=== PATIENT | male | born 1935 | race Caucasian/White ===

== ENCOUNTER → 2020-03-26 | Outpatient (CLI) | payer MEDICARE | LOC: LABNPT 16:05 | PROVIDERS: ATTEND Podiatrist Foot & Ankle Surgery | DX: Z01.89 Encounter for other specified special examinations (principal) | CPT/HCPCS: 87101 ==

== ENCOUNTER 2020-04-01 14:16 | Emergency (ER) | payer MEDICARE, OTHER ==
[~2020-04-01] VITALS: Ht 172.7 cm; Wt 106.6 kg
--- OUTSIDE RECORDS SUMMARY | 2020-04-01 14:23 | XMS REPORT | Continuity of Care Document ---
Author Organization Unknown Address Unknown Phone Unavailable Allergies There is no data. Medications There is no data. Problems Date Dx Coded Attending Type Code Diagnosis Diagnosed By 03/28/2020 DANE DPM, SHANI Q Ot Z01. 89 ENCOUNTER FOR OTHER SPECIFIED SPECIAL EX 03/28/2020 DANE DPM, SHANI Q Ot Z01. 89 ENCOUNTER FOR OTHER SPECIFIED SPECIAL EX 03/28/2020 DANE DPM, SHANI Q Ot Z01. 89 ENCOUNTER FOR OTHER SPECIFIED SPECIAL EX Procedures There is no data. Results There is no data. Encounters ACCT No. Visit Date/Time Discharge Status Pt. Type Provider Facility Loc./Unit Complaint [id number] 10/10/2019 12:30:00 10/10/2019 23:59: 59 CLS Outpatient [facility] [id number] 03/26/2020 16:05:00 020 23:59:59 CLS Outpatient DANE DPM, SHANI Q [facility]
[2020-04-01] MEDS ORDERED: oxyCODONE/APAP 5/325MG (PERCOCET 5) TABLET PO ONE (15:00)
--- NOTE | 2020-04-01 15:10 | ED General ---
General Chief Complaint: Cardiac/General Problems Stated Complaint: LIONEL FEET SWELLING History of Present Illness Date Seen by Provider: April 01, 2020 Time Seen by Provider: 15:04 Initial Comments Patient presenting to emergency department for evaluation of bilateral actually swelling that has been an ongoing issue since October of last year. He says he has been following with his primary care provider and getting testing and treatment, he has been on Neosporin ointment since October and he says it has not helped at all. He has had skin scrapings done which showed it was a fungus and he has been on an antifungal cream and has used to 2 tubes so far and he says it has not helped either. He had a biopsy done on his right inner foot and he said it was a wart. His primary care provider is running out of options and has referred him to a payroll machine operator but his appointment is not until April 23 and he says he has endured too much pain for to long and says he would like to better pain control. I told him I likely would not get a better diagnosis or treatment plan but I certainly could try and treat his pain and maybe cough with some different management strategies. He was agreeable with this. 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 He denies having any chest pain or shortness of breath. He is in no obvious distress with normal vital signs. Allergies and Home Medications Allergies Coded Allergies: No Known Drug Allergies (Unverified , 04/01/20) Patient Home Medication List Home Medication List Reviewed: Yes Review of Systems Review of Systems Constitutional: no symptoms reported EENTM: no symptoms reported Respiratory: no symptoms reported Cardiovascular: edema Gastrointestinal: no symptoms reported Musculoskeletal: no symptoms reported Skin: dryness, lesions, rash Psychiatric/Neurological: No Symptoms Reported All Other Systems Reviewed Negative Unless Noted: Yes Past Wsstkjp-Zdjtky-Wircaa Hx Patient Social History Recent Foreign Travel: No Contact w/Someone Who Travel: No Physical Exam Vital Signs Capillary Refill : Height, Weight, BMI Height: '" Weight: lbs. oz. kg; BMI Method: General Appearance: No Apparent Distress, WD/WN HEENT: PERRL/EOMI Neck: Supple Respiratory: No Respiratory Distress Cardiovascular: Regular Rate, Rhythm Extremity: Normal Capillary Refill Neurologic/Psychiatric: Alert, Oriented x3 Skin: Other (bilateral lower extremities have erythema circumferentially from the feet to the proximal tib-fib region. There is no warmth or significant tenderness to palpation. Some of the erythema is splotchy especially on the top of the right foot. The labs he site appears clean and dry and intact with no signs of fluid collection or cellulitis. 2+ edema BL LE) Progress/Results/Core Measures Suspected Sepsis SIRS Temperature: Pulse: Respiratory Rate: Blood Pressure / Mean: Results/Orders My Orders Orders - TERRELL NICOLE DO Oxycodone/Apap 5/325mg Tablet (Percocet (04/01/20 15:00) Vital Signs/I&O Capillary Refill : Progress Note : Progress Note I gave him Percocet here. He does not have compression stockings at this time so told him to acquire compression stockings and use this and he also needs to elevate his legs quite frequently at least 15 minutes every 2 hours. Patient was told that he should be using moisturizers frequently and I recommended Vaseline. I told him as far as antibiotics or oral antifungals I would hold off doing that at this time as I would rather him see his primary care provider or a payroll machine operator as they're more familiar with his wounds and couldn't further guide management that point. Told he has fevers chills or other systemic symp toms he should come back to emergency department. Patient aware and agreeable with plan and verbalized understanding of the above instructions. Departure Impression Primary Impression: Fungal dermatitis Additional Impression: Stasis dermatitis Disposition: 01 HOME, SELF-CARE Condition: Stable Departure-Patient Inst. Referrals: NO,LOCAL PHYSICIAN (PCP/Family) Primary Care Physician Patient Instructions: Fungal Skin Rash (DC) Add. Discharge Instructions: Use Vaseline gauze 4 times daily. Use compression stalkings. Elevated legs for at least 15 minutes every 2 hours, more if possible. Try and get in with a payroll machine operator sooner. All discharge instructions reviewed with patient and/or family. Voiced understanding. Scripts Oxycodone HCl/Acetaminophen (Percocet 5-325 mg Tablet) 1 Each Tablet 1 TAB PO Q4H for PAIN-MODERATE MDD 6 TABS for 7 Days, #14 TAB Prov: TERRELL NICOLE DO 04/01/20 TERRELL NICOLE DO April 01, 2020 15:09
[2020-04-01] MEDS ORDERED: OXYC1TAB87 PO (15:16)
[2020-04-01 15:25] VITALS: BP 148/77
== END 2020-04-01 15:20 | disposition home or self-care (01) ==
LOC: EDUNIT# 14:16 → ER FS 14:19
DX: B36.9 Superficial mycosis, unspecified (principal); I87.2 Venous insufficiency (chronic) (peripheral)
CPT/HCPCS: 99283

== ENCOUNTER 2020-06-15 09:21 | Emergency (ER) | payer MEDICARE, OTHER ==
[~2020-06-15] VITALS: Ht 172.7 cm; Wt 105.2 kg
[~2020-06-15 09:21] MED LIST: OXYC1TAB87 PO
--- OUTSIDE RECORDS SUMMARY | 2020-06-15 09:31 | XMS REPORT ---
Author Author Angel Brown Organization [facility] Address [address] [place] [address] Care Team Providers Care Counter Pocket Sewer Name Role Phone Julieta Brown Unavailable PROBLEMS Type Condition ICD9-CM Code [id number] Code Onset Dates Condition S tatus SNOMED Code Problem Venous stasis dermatitis of both lower extremities I87.2 Active 28386273 Problem Stasis dermatitis of both legs I87.2 Active 55024804 ALLERGIES Substance Reaction Event Type Date Status Morphine Sulfate Unknown Drug Allergy Apr, Active Dilaudid Unknown Drug Allergy Apr, Active statins Unknown Non Drug Allergy Apr, Active ENCOUNTERS Encounter Location Date Diagnosis [facility] [address] [facility] [address] [place] [address] Apr, Callus of foot L84 and Stasi s dermatitis of both legs I87.2 [facility] [address] [facility] [address] [facility] [address] [place] [phone] 15 Apr, 2020 [facility] [address] [facility] in [facility] [address] [place] [address] 04 Apr, 2020 Stasis dermatitis of both le gs I87.2 and Tinea pedis B35.3 IMMUNIZATIONS No Known Immunizations SOCIAL HISTORY Never Assessed REASON FOR VISIT 2 week f/u temp : 98.1 PLAN OF CARE Activity Details Follow Up prn Reason: VITAL SIGNS Temperature 98.1 degrees Fahrenheit 2020-04-30 Heart Rate 67 /min 2020-04-30 Height 68.5 in 2020-04-30 Weight 236 lbs 2020-04-30 BMI 35.36 kg/m2 2020-04-30 Blood pressure systolic 174 mm Hg 2020-04-30 Blood pressure diastolic 98 mm Hg 2020-04-30 MEDICATIONS Medication Instructions Dosage Frequency Start Date End Date Duration S tatus Metoprolol Tartrate Acti ve Zantac Active Altace Active Hydrocodone-Acetaminophen Active Vitamin C Active Multivitamin Active Minocycline HCl 100 MG Orally bid 1 capsule 12h 04 Apr, 2020 10 day(s) Active Econazole Nitrate Active Fish Oil Active Livalo Active Econazole Nitrate 1 % Externally twice a day apply to feet 12h 0 4 Apr, 2020 30 days Active Aspirin Active Diflucan 150 MG Orally once a week x 6 weeks 1 tablet 2019 42 day(s) Active Levothyroxine Sodium Act jcarlos Lac-Hydrin Twelve 12 % Externally once a day 1 application to legs and feet 24h 22 Apr, 2020 30 days Active Triamcinolone Acetonide 0.1 % Externally Twice a day apply to legs and feet 12h Apr, 30 days Active Tamsulosin HCl Active Triple Antibiotic Active Trazodone HCl Active Azelastine HCl Active Norvasc Active RESULTS No Results PROCEDURES Procedure Date Ordered Result Body Site DOC MEDS VERIFIED W/PT OR RE April 30, 2020 INSTRUCTIONS MEDICATIONS ADMINISTERED No Known Medications MEDICAL (GENERAL) HISTORY Type Description Date Medical History hyperlipidemia Medical History Hypothyroidism Surgical History Shoulder Surgery Surgical History left hip replacement Surgical History right hip replacement Surgical History brain surgery
--- OUTSIDE RECORDS SUMMARY | 2020-06-15 09:31 | XMS REPORT ---
Author Author Angel Brown Organization [facility] Address [address] [address] [place] [address] Care Team Providers Care Community Reinvestment Act Officer Name Role Phone Julieta Brown Unavailable PROBLEMS Type Condition ICD9-CM Code [id number] Code Onset Dates Condition S tatus SNOMED Code Problem Venous stasis dermatitis of both lower extremities I87.2 Active 52813960 Problem Stasis dermatitis of both legs I87.2 Active 92640318 ALLERGIES No Information ENCOUNTERS Encounter Location Date Diagnosis [facility] [address] [facility] [address] [facility] [address] [place] [address] Apr, [facility] [address] [facility] [address] [facility] [address] [place] [address] 15 Apr, 2020 [facility] [id number] [place] [address] in [facility] [address] [place] [address] 04 Apr, 2020 Stasis dermatitis of both le gs I87.2 and Tinea pedis B35.3 IMMUNIZATIONS No Known Immunizations SOCIAL HISTORY Never Assessed REASON FOR VISIT RX PLAN OF CARE VITAL SIGNS MEDICATIONS Unknown Medications RESULTS No Results PROCEDURES No Known procedures INSTRUCTIONS MEDICATIONS ADMINISTERED No Known Medications MEDICAL (GENERAL) HISTORY Type Description Date Medical History hyperlipidemia Medical History Hypothyroidism Surgical History Shoulder Surgery Surgical History left hip replacement Surgical History right hip replacement Surgical History brain surgery
--- OUTSIDE RECORDS SUMMARY | 2020-06-15 09:31 | XMS REPORT ---
Author Author Angel Brown Organization [facility] Address [address] [place] [address] Care Team Providers Care Casino Enforcement Agent Name Role Phone Julieta Brown Unavailable PROBLEMS Type Condition ICD9-CM Code [id number] Code Onset Dates Condition S tatus SNOMED Code Problem Venous stasis dermatitis of both lower extremities I87.2 Active 99065806 Problem Stasis dermatitis of both legs I87.2 Active 31064048 ALLERGIES Substance Reaction Event Type Date Status Morphine Sulfate Unknown Drug Allergy Apr, Active Dilaudid Unknown Drug Allergy Apr, Active statins Unknown Non Drug Allergy Apr, Active ENCOUNTERS Encounter Location Date Diagnosis [facility] [address] in [facility] [address] [place] [address] Apr, [facility] [address] in [facility] [address] [place] [address] Apr, Stasis dermatitis of both le gs I87.2 and Tinea pedis B35.3 IMMUNIZATIONS No Known Immunizations SOCIAL HISTORY Never Assessed REASON FOR VISIT ERP TECHNICAL LEAD-foot fungus PLAN OF CARE Activity Details Follow Up 2 Weeks Reason: VITAL SIGNS Heart Rate 69 /min 2020-04-12 Height 68.5 in 2020-04-12 Weight 236 lbs 2020-04-12 BMI 35.36 kg/m2 2020-04-12 Blood pressure systolic 142 mm Hg 2020-04-12 Blood pressure diastolic 59 mm Hg 2020-04-12 MEDICATIONS Medication Instructions Dosage Frequency Start Date End Date Duration S tatus Econazole Nitrate Active Triple Antibiotic Active Multivitamin Active Zantac Active Aspirin Active Fish Oil Active Trazodone HCl Active Diflucan 150 MG Orally once a week x 6 weeks 1 tablet 2019 42 day(s) Active Livalo Active Hydrocodone-Acetaminophen Active Metoprolol Tartrate Acti ve Minocycline HCl 100 MG Orally bid 1 capsule 12h Apr, 10 day(s) Active Triamcinolone Acetonide 0.1 % Externally Twice a day apply to legs and feet 12h Apr, 30 days Active Azelastine HCl Active Altace Active Vitamin C Active Econazole Nitrate 1 % Externally twice a day apply to feet 12h 0 Apr, 30 days Active Norvasc Active Levothyroxine Sodium Act jcarlos Tamsulosin HCl Active RESULTS No Results PROCEDURES Procedure Date Ordered Result Body Site DOC MEDS VERIFIED W/PT OR RE April 12, 2020 INSTRUCTIONS MEDICATIONS ADMINISTERED No Known Medications MEDICAL (GENERAL) HISTORY Type Description Date Medical History hyperlipidemia Medical History Hypothyroidism Surgical History Shoulder Surgery Surgical History left hip replacement Surgical History right hip replacement Surgical History brain surgery
--- OUTSIDE RECORDS SUMMARY | 2020-06-15 09:31 | XMS REPORT | Continuity of Care Document ---
Author Organization Unknown Address Unknown Phone Unavailable Allergies Active Description Code Type Severity Reaction Onset Reported/Identified Relationship to Patient Clinical Status Yes No Known Drug Allergies [id number] Drug Allergy Unknown N/A 04/01/2020 Medications There is no data. Problems Date Dx Coded Attending Type Code Diagnosis Diagnosed By 03/28/2020 DANE DPM, SHANI Q Ot Z01. 89 ENCOUNTER FOR OTHER SPECIFIED SPECIAL EX 03/28/2020 DANE DPM, SHANI Q Ot Z01. 89 ENCOUNTER FOR OTHER SPECIFIED SPECIAL EX 03/28/2020 DANE DPM, SHANI Q Ot Z01. 89 ENCOUNTER FOR OTHER SPECIFIED SPECIAL EX 04/01/2020 TERRELL NICOLE DO Ot B36 .9 SUPERFICIAL MYCOSIS, UNSPECIFIED 04/01/2020 REEDS DOTERRELL Ot I87 .2 VENOUS INSUFFICIENCY (CHRONIC) (PERIPHER 04/01/2020 DANE DPM, SHANI Q Ot Z01. 89 ENCOUNTER FOR OTHER SPECIFIED SPECIAL EX 04/02/2020 DANE DPM, SHANI Q Ot Z01. 89 ENCOUNTER FOR OTHER SPECIFIED SPECIAL EX 04/04/2020 TERRELL NICOLE DO Ot B36 .9 SUPERFICIAL MYCOSIS, UNSPECIFIED 04/04/2020 TERRELL NICOLE DO Ot I87 .2 VENOUS INSUFFICIENCY (CHRONIC) (PERIPHER 04/07/2020 TERRELL NICOLE DO Ot B36 .9 SUPERFICIAL MYCOSIS, UNSPECIFIED 04/07/2020 BONNIETERRELL JAY DO Ot I87 .2 VENOUS INSUFFICIENCY (CHRONIC) (PERIPHER 04/20/2020 DANE DPM, SHANI Q Ot Z01. 89 ENCOUNTER FOR OTHER SPECIFIED SPECIAL EX 04/20/2020 DANE DPM, SHANI Q Ot Z01. 89 ENCOUNTER FOR OTHER SPECIFIED SPECIAL EX 05/14/2020 DANE DPM, SHANI Q Ot Z01. 89 ENCOUNTER FOR OTHER SPECIFIED SPECIAL EX 05/14/2020 DANE DPM, SHANI Q Ot Z01. 89 ENCOUNTER FOR OTHER SPECIFIED SPECIAL EX Procedures There is no data. Results Test Result Range Fungus culture - 03/26/20 11:00 QUANTITY OF GROWTH Isolated NRG FTX;REPORTABLE RAPID GROWER NRG Fungus culture [id number] NRG IDENTIFICATION TO FOLLOW FURTHER IDENTIFICATION TO FOLLOW NRG Encounters ACCT No. Visit Date/Time Discharge Status Pt. Type Provider Facility Loc./Unit Complaint [id number] 10/10/2019 12:30:00 10/10/2019 23:59: 59 CLS [facility] [id number] 04/01/2020 14:19:00 020 15:20:00 DIS Emergency TERRELL NICOLE DO [facility] ER FS LIONEL FEET SWELLING [id number] 03/26/2020 16:05:00 23:59:59 CLS Outpatient SHANI VELA DPM [facility] LABNPT
--- NOTE | 2020-06-15 09:37 | ED Chest Pain ---
General Chief Complaint: Chest Pain Stated Complaint: CHEST PAIN Source: patient, EMS Exam Limitations: no limitations History of Present Illness Date Seen by Provider: Jun 15, 2020 Time Seen by Provider: 09:28 Initial Comments 85-year-old male presents with onset of chest pain earlier this morning. Pain began after increasing back pain which has been persistent for the past week. Pain is located between his shoulder blades and this morning radiated up his ba ck and into her shoulder, then into his chest. Pain is significant worse with movement and positionally exacerbated or relieved. Denies any associated recent illness, fever, chills, cough, shortness of air, abdominal pain or nausea and vomiting. Patient states that he believes back pain began after he started using a walker 3 weeks ago for getting around because his feet were hurting so bad. Patient states he has had a problem with the bottom of his feet, has not seen his doctor, but the condition is getting worse and is now painful to bear weight. Allergies and Home Medications Allergies Coded Allergies: Dqkjrcf-Bpj-Lsq Reductase Inhibitor (Verified Allergy, Unknown, 06/15/20) morphine (Verified Allergy, Unknown, 06/15/20) phenytoin (Verified Allergy, Unknown, 06/15/20) Home Medications Cyclobenzaprine HCl 10 Mg Tablet, 10 MG PO Q8H PRN for SPASMS Prescribed by: ARCHIE HEIN on 06/15/20 1157 Ibuprofen 800 Mg Tablet, 800 MG PO Q8H PRN for PAIN Prescribed by: ARCHIE BARRYSTCHAYO on 06/15/20 1157 Oxycodone HCl/Acetaminophen 1 Each Tablet, 1 TAB PO Q4H Prescribed by: TERRELL NICOLE on 04/01/20 1516 Patient Home Medication List Home Medication List Reviewed: Yes Review of Systems Review of Systems Constitutional: see HPI; No fever, No malaise, No weakness EENTM: No Symptoms Reported Respiratory: Denies Cough, Denies Shortness of Air, Denies Stridor, Denies Wheezing Cardiovascular: Chest Pain; Denies Edema, Denies Lightheadedness, Denies Palpit ations, Denies Syncope Gastrointestinal: Denies Abdominal Pain, Denies Diarrhea, Denies Nausea, Denies Poor Appetite, Denies Vomiting Genitourinary: Denies Drainage, Denies Frequency, Denies Flank Pain, Denies He maturia Musculoskeletal: back pain; No joint pain, No joint swelling, No neck pain Skin: see HPI; No change in color, No lesions, No lumps; other (chronic skin changes of sole of feet) Past Ydxqepn-Rgyjjs-Vmemvu Hx Past Med/Social Hx: Reviewed Nursing Past Med/Soc Hx Patient Social History Type Used: Cigarettes Former Smoker, Quit: Nov 09, 1989 2nd Hand Smoke Exposure: No Immunizations Up To Date Tetanus Booster (TDap): Unknown Past Medical History Appendectomy, Coronary Stent, Orthopedic Respiratory: No Cardiac: Yes High Cholesterol, Hypertension Neurological: Yes (Contusion to brain) Genitourinary: No Gastroesophageal Reflux Musculoskeletal: No Endocrine: Yes (Borderline Diabetic) HEENT: No Cancer: No Psychosocial: No Integumentary: Yes (Dermatitis) Recent Skin Changes Blood Disorders: No Physical Exam Vital Signs Vital Signs - First Documented 06/15/20 09:24 Temp 36.4 Pulse 80 Resp 21 B/P (MAP) 159/72 (101) Pulse Ox 96 O2 Delivery Room Air Capillary Refill : Height, Weight, BMI Height: '" Weight: lbs. oz. kg; 35.00 BMI Method: General Appearance: No Apparent Distress, WD/WN HEENT: PERRL/EOMI, Normal ENT Inspection Neck: Full Range of Motion, Non Tender, Supple Respiratory: Chest Non Tender, Lungs Clear, Normal Breath Sounds Cardiovascular: Regular Rate, Rhythm, No Edema, No JVD, No Murmur, Normal Peripheral Pulses Gastrointestinal: Non Tender, Soft; No Distended, No Guarding, No Hepatomegaly Extremity: Normal Capillary Refill, Non Tender, No Calf Tenderness; No Calf Tenderness, No Pedal Edema, No Swelling Skin: Warm/Dry; No Erythema; Other (chronic skin changes of soles of feet. large cracks and tenderness. no sign of abscess or cellulitis.) Progress/Results/Core Measures Results/Orders Lab Results Laboratory Tests Test 06/15/20 09:40 06/15/20 11:45 Range/Units White Blood Count 11.4 H 4.3-11.0 10^3/uL Red Blood Count 4.55 4.35-5.85 10^6/uL Hemoglobin 13.0 L 13.3-17.7 G/DL Hematocrit 40 40-54 % Mean Corpuscular Volume 88 80-99 FL Mean Corpuscular Hemoglobin 29 25-34 PG Mean Corpuscular Hemoglobin Concent 33 32-36 G/DL Red Cell Distribution Width 13.9 10.0-14.5 % Platelet Count 243 130-400 10^3/uL Mean Platelet Volume 10.0 7.4-10.4 FL Neutrophils (%) (Auto) 69 42-75 % Lymphocytes (%) (Auto) 15 12-44 % Monocytes (%) (Auto) 14 H 0-12 % Eosinophils (%) (Auto) 2 0-10 % Basophils (%) (Auto) 0 0-10 % Neutrophils # (Auto) 7.9 H 1.8-7.8 X 10^3 Lymphocytes # (Auto) 1.7 1.0-4.0 X 10^3 Monocytes # (Auto) 1.6 H 0.0-1.0 X 10^3 Eosinophils # (Auto) 0.2 0.0-0.3 10^3/uL Basophils # (Auto) 0.1 0.0-0.1 10^3/uL Sodium Level 133 L 135-145 MMOL/L Potassium Level 4.7 3.6-5.0 MMOL/L Chloride Level 96 L 98-107 MMOL/L Carbon Dioxide Level 28 21-32 MMOL/L Anion Gap 9 5-14 MMOL/L Blood Urea Nitrogen 17 7-18 MG/DL Creatinine 0.84 0.60-1.30 MG/DL Estimat Glomerular Filtration Rate > 60 BUN/Creatinine Ratio 20 Glucose Level 190 H 70-105 MG/DL Calcium Level 10.1 8.5-10.1 MG/DL Corrected Calcium 10.3 H 8.5-10.1 MG/DL Total Bilirubin 0.7 0.1-1.0 MG/DL Aspartate Amino Transf (AST/SGOT) 15 5-34 U/L Alanine Aminotransferase (ALT/SGPT) 12 0-55 U/L Alkaline Phosphatase 55 40-136 U/L Troponin I < 0.30 < 0.30 <0.30 NG/ML Total Protein 7.4 6.4-8.2 GM/DL Albumin 3.7 3.2-4.5 GM/DL My Orders Orders - ROVENSTARCHIE DOMINGO DO Ed Iv/Invasive Line Start (06/15/20 09:30) Chest 1 View Ap/Pa Only (06/15/20 09:30) Ekg Tracing (06/15/20 09:30) Cbc With Automated Diff (06/15/20 09:30) Comprehensive Metabolic Panel (06/15/20 09:30) Troponin I Fs (06/15/20 09:30) Aspirin Chewable Tablet (Baby Aspirin Ch (06/15/20 10:00) Fentanyl Injection (Sublimaze Injection (06/15/20 10:00) Troponin I Fs (06/15/20 11:45) Medications Given in ED Current Medications Medications Dose Ordered Sig/Fabiano Route Start Time Stop Time Status Last Admin Dose Admin Aspirin 324 mg ONCE ONCE PO 06/15/20 10:00 06/15/20 10:01 DC 06/15/20 10:14 324 MG Fentanyl Citrate 25 mcg Q1H PRN IVP 06/15/20 10:00 06/15/20 12:45 DC 06/15/20 10:14 25 MCG Vital Signs/I&O 06/15/20 06/15/20 06/15/20 09:24 09:38 12:23 Temp 36.4 Pulse 80 76 Resp 21 20 B/P (MAP) 159/72 (101) 141/68 Pulse Ox 96 95 O2 Delivery Room Air Room Air Room Air Progress Progress Note : Progress Note Uneventful ER stay, normal labs including to our delta troponin, normal EKG and chest x-ray. Patient primarily has upper back pain, and between his shoulder blades which is been exacerbated by walking with a walker over the past few weeks due to having foot pain. This was discussed rather extensively with the patient. 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 I did offer treatment, however he declined and said "I don't mean to be insulting, but I'd rather get treatment from my document management consultant for my foot". Discussed stretches and exercises that he can do for his upper back in the meantime since he prefers to use a walker for his foot pain. Patient agrees and understands and will follow up with PCP next week for reevaluation. 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 Lungs are clear. There are no effusions or pneumothoraces. IMPRESSION: Negative chest Dictated by: Dictated on workstation # [id number] Dict: 06/15/20948 Trans: 06/15/20948 TB [id number] Interpreted by: LUCIA MESSER MD Electronically signed by: LUCIA MESSER MD 06/15/20948 Departure Impression Primary Impression: Chest pain Qualified Codes: R07.9 - Chest pain, unspecified Additional Impression: Thoracic myofascial strain Qualified Codes: S29.019A - Strain of muscle and tendon of unspecified wall of thorax, initial encounter Disposition: HOME, SELF-CARE Condition: Improved Departure-Patient Inst. Referrals: NO,LOCAL PHYSICIAN (PCP/Family) Primary Care Physician Patient Instructions: Chest Pain (DC), Muscle Strain (DC) Add. Discharge Instructions: See your Primary Doctor in 1 week for re-evaluation of your back pain. Go to the nearest ER if you have return of your chest pain. All discharge instructions reviewed with patient and/or family. Voiced understanding. Scripts Ibuprofen (Ibuprofen) 800 Mg Tablet 800 MG PO Q8H PRN for PAIN, #30 TAB 0 Refills Prov: ARCHIE HEIN DO 06/15/20 Cyclobenzaprine HCl (Cyclobenzaprine HCl) 10 Mg Tablet 10 MG PO Q8H PRN for SPASMS, #15 TAB 0 Refills Prov: ARCHIE HEIN DO 06/15/20 ARCHIE HEIN DO Jun 15, 2020 09:37
--- NOTE | 2020-06-15 09:51 | Diagnostic Imaging Report ---
Indication: Chest pain Portable chest 9:38 AM Heart size and pulmonary vascularity are normal. Lungs are clear. There are no effusions or pneumothoraces. IMPRESSION: Negative chest Dictated by: Dictated on workstation # [id number]
[2020-06-15 09:54] LABS: HEMATOCRIT 40 % (40-54); MEAN CORPUSCULAR HEMOGLOBIN 29 PG (25-34); MEAN CORPUSCULAR HGB CONC 33 G/DL (32-36); MEAN CORPUSCULAR VOLUME 88 FL (80-99); RED CELL DISTRIBUTION WIDTH 13.9 % (10.0-14.5); WHITE BLOOD COUNT 11.4 10^3/uL (4.3-11.0)
[2020-06-15 09:55] LABS: BASOPHILS # (AUTO) 0.1 10^3/uL (0.0-0.1); BASOPHILS % (AUTO) 0 % (0-10); EOSINOPHILS # (AUTO) 0.2 10^3/uL (0.0-0.3); EOSINOPHILS % (AUTO) 2 % (0-10); LYMPHOCYTES # (AUTO) 1.7 X 10^3 (1.0-4.0); LYMPHOCYTES % (AUTO) 15 % (12-44); MONOCYTES # (AUTO) 1.6 X 10^3 (0.0-1.0); MONOCYTES % (AUTO) 14 % (0-12); NEUTROPHILS # (AUTO) 7.9 X 10^3 (1.8-7.8); NEUTROPHILS % (AUTO) 69 % (42-75); PLATELET COUNT 243 10^3/uL (130-400)
[2020-06-15] MEDS ORDERED: ASPIRIN 81 MG CHEW (CHILDREN'S ASA) PO ONE (10:00)
[2020-06-15] MEDS ORDERED: fentaNYL INJECTION 100 MCG/2 ML AMP IVP PRN (10:00)
[2020-06-15 10:09] LABS: BUN/CREATININE RATIO 20; CARBON DIOXIDE 28 MMOL/L (21-32); CHLORIDE 96 MMOL/L (98-107); CREATININE SERUM 0.84 MG/DL (0.60-1.30); GFR ESTIMATED > 60; POTASSIUM 4.7 MMOL/L (3.6-5.0); SODIUM 133 MMOL/L (135-145)
[2020-06-15 10:10] LABS: ALANINE AMINOTRANSFERASE 12 U/L (0-55); ALBUMIN 3.7 GM/DL (3.2-4.5); ALKALINE PHOSPHATASE 55 U/L (40-136); BILIRUBIN,TOTAL 0.7 MG/DL (0.1-1.0); CALCIUM 10.1 MG/DL (8.5-10.1); GLUCOSE 190 MG/DL (70-105); TOTAL PROTEIN 7.4 GM/DL (6.4-8.2)
[2020-06-15] MEDS ORDERED: IBUP-1780 PO (11:57)
[2020-06-15] MEDS ORDERED: CYCL10TA9 PO (11:57)
[2020-06-15 12:23] VITALS: BP 141/68
== END 2020-06-15 12:23 | disposition home or self-care (01) ==
LOC: EDUNIT# 09:21 → ER FS 09:22
DX: S29.012A Strain of muscle and tendon of back wall of thorax, initial encounter (principal); R07.9 Chest pain, unspecified; Z88.8 Allergy status to other drugs, medicaments and biological substances; Z88.5 Allergy status to narcotic agent; Z87.891 Personal history of nicotine dependence; Z95.5 Presence of coronary angioplasty implant and graft; X58.XXXA Exposure to other specified factors, initial encounter
CPT/HCPCS: 36415; 71045; 80053; 84484; 85025; 93005

== ENCOUNTER 2020-09-14 12:32 | Emergency (ER) | payer MEDICARE, OTHER ==
[~2020-09-14 12:32] MED LIST changes: +CYCL10TA9 PO; +IBUP-1780 PO
[2020-09-14] MEDS ORDERED: hydrALAZINE (APESOLINE) 20 MG/ML VIAL IV ONE (12:45)
--- NOTE | 2020-09-14 12:45 | ED General ---
General Chief Complaint: Neuro-Stroke Like Symptoms Stated Complaint: RT FACIAL NUMBNESS; RT HAND NUMBNESS; Source of Information: Patient, RN/MD, RN Notes Reviewed Exam Limitations: No Limitations History of Present Illness Date Seen by Provider: Sep 14, 2020 Time Seen by Provider: 12:35 Initial Comments This patient is an 85-year-old male that presents to the emergency department concerning the knee might be having a mini stroke. Patient states he describes n umbness to the right side of his face and right thumb. On the posterior portion. Patient denies any other symptoms. On exam patient's appears to be normal. NIH scale 0. Patient has 2 point discrimination no pain receptors and does not appear to have any numbness with examination. Patient states he feels like he does have a shot of Novocain in his teeth. Patient states she's had a mini stroke in the past. We'll do medical evaluation treatment is needed. Patient ambulates in the emergency department without difficulty patient speaks in clear sentences. We'll do medical evaluation treatment is needed. Timing/Duration: 1-3 Hours Associated Systoms: Denies Symptoms Allergies and Home Medications Allergies Coded Allergies: Bwpneuz-Afl-Wee Reductase Inhibitor (Verified Allergy, Unknown, 06/15/20) morphine (Verified Allergy, Unknown, 06/15/20) phenytoin (Verified Allergy, Unknown, 06/15/20) Home Medications Cyclobenzaprine HCl 10 Mg Tablet, 10 MG PO Q8H PRN for SPASMS Prescribed by: ARCHIE BARRYSTCHAYO on 06/15/20 1157 Ibuprofen 800 Mg Tablet, 800 MG PO Q8H PRN for PAIN Prescribed by: ARCHIE BARRYSTINE on 06/15/20 1157 Oxycodone HCl/Acetaminophen 1 Each Tablet, 1 TAB PO Q4H Prescribed by: TERRELL NICOLE on 04/01/20 1516 Patient Home Medication List Home Medication List Reviewed: Yes Review of Systems Review of Systems Constitutional: No no symptoms reported; see HPI; No chills, No diaphoresis, No dizziness, No fever, No malaise, No weakness, No weight gain, No weight loss, No other EENTM: No see HPI, No no symptoms reported, No ear discharge, No hearing loss, No ear pain, No blurred vision, No double vision, No eye pain, No tearing, No vision loss, No dental problems, No hoarseness, No mouth pain, No mouth swelling, No epistaxis, No nose congestion, No nose pain, No throat pain, No throat swelling, No other Respiratory: No no symptoms reported, No see HPI, No cough, No dyspnea on exertion, No hemoptysis, No orthopnea, No phlegm, No short of breath, No stridor, No wheezing, No other Cardiovascular: No no symptoms reported, No see HPI, No chest pain, No edema, No Hx of Intervention, No palpitations, No syncope, No vascular heart diseas, No other Gastrointestinal: No RUQ, No LUQ, No RLQ, No LLQ, No no symptoms reported, No see HPI, No abdominal pain, No constipation, No diarrhea, No dysphagia, No hematemesis, No heartburn, No jaundice, No loss of appetite, No melena, No nausea, No vomiting, No other Genitourinary: No no symptoms reported, No see HPI, No decreased output, No discharge, No dysuria, No frequency, No hematuria, No hesitancy, No incontinence, No nocturia, No pain, No other Musculoskeletal: No no symptoms reported, No see HPI, No back pain, No gout, No joint pain, No joint swelling, No muscle pain, No muscle stiffness, No muscle cramps, No muscle twitching, No muscle weakness, No neck pain, No other Skin: No no symptoms reported, No see HPI, No change in color, No change in hair/nails, No dryness, No hx of skin cancer, No lesions, No lumps, No pruritus, No rash, No other All Other Systems Reviewed Negative Unless Noted: Yes Past Kdvliic-Mcscfi-Bknivs Hx Patient Social History Type Used: Cigarettes Former Smoker, Quit: Nov 09, 1989 2nd Hand Smoke Exposure: No Recent Foreign Travel: No Contact w/Someone Who Travel: No Recent Hopitalizations: No Immunizations Up To Date Tetanus Booster (TDap): Unknown Seasonal Allergies Seasonal Allergies: No Past Medical History Surgeries: Yes (Bilat Total Hip, R TKR, Rt foot Biopsy, Thyroid lobectomy) Appendectomy, Coronary Stent, Orthopedic Respiratory: No Cardiac: Yes Coronary Artery Disease, High Cholesterol, Hypertension Neurological: Yes (Contusion to brain) Genitourinary: No Gastrointestinal: Yes Gastroesophageal Reflux Musculoskeletal: No Endocrine: Yes (Borderline Diabetic) HEENT: No Cancer: No Psychosocial: No Integumentary: Yes (Dermatitis) Recent Skin Changes Blood Disorders: No Physical Exam Vital Signs Vital Signs - First Documented 09/14/20 12:33 Temp 36.9 Pulse 63 Resp 14 B/P (MAP) 164/72 (102) Pulse Ox 97 O2 Delivery Room Air Capillary Refill : Height, Weight, BMI Height: '" Weight: lbs. oz. kg; 35.00 BMI Method: General Appearance: No Apparent Distress, WD/WN HEENT: PERRL/EOMI, TMs Normal, Normal ENT Inspection, Pharynx Normal Respiratory: Chest Non Tender, Lungs Clear, Normal Breath Sounds, No Accessory Muscle Use, No Respiratory Distress Cardiovascular: Regular Rate, Rhythm, No Edema, No Gallop, No JVD, No Murmur, Normal Peripheral Pulses Gastrointestinal: Normal Bowel Sounds, No Organomegaly, No Pulsatile Mass, Non Tender, Soft Back: Normal Inspection, No CVA Tenderness, No Vertebral Tenderness Extremity: Normal Capillary Refill, Normal Inspection, Normal Range of Motion, Non Tender, No Calf Tenderness, No Pedal Edema Neurologic/Psychiatric: Alert, Oriented x3, No Motor/Sensory Deficits, Normal Mood/Affect, channel cementer outsole machine II-XII Norm as Tested Skin: Normal Color, Warm/Dry Lymphatic: No Adenopathy Progress/Results/Core Measures Suspected Sepsis SIRS Temperature: Pulse: Respiratory Rate: Laboratory Tests 09/14/20 13:10: White Blood Count 6.1 Blood Pressure / Mean: Laboratory Tests 09/14/20 13:10: Creatinine 0.87, INR Comment 1.0, Platelet Count 225, Total Bilirubin 0.4 Results/Orders Lab Results Laboratory Tests Test 09/14/20 13:10 09/14/20 14:15 Range/Units White Blood Count 6.1 4.3-11.0 10^3/uL Red Blood Count 4.35 4.35-5.85 10^6/uL Hemoglobin 12.7 L 13.3-17.7 G/DL Hematocrit 37 L 40-54 % Mean Corpuscular Volume 86 80-99 FL Mean Corpuscular Hemoglobin 29 25-34 PG Mean Corpuscular Hemoglobin Concent 34 32-36 G/DL Red Cell Distribution Width 13.2 10.0-14.5 % Platelet Count 225 130-400 10^3/uL Mean Platelet Volume 10.0 7.4-10.4 FL Immature Granulocyte % (Auto) 0 % Neutrophils (%) (Auto) 57 42-75 % Lymphocytes (%) (Auto) 25 12-44 % Monocytes (%) (Auto) 14 H 0-12 % Eosinophils (%) (Auto) 3 0-10 % Basophils (%) (Auto) 1 0-10 % Neutrophils # (Auto) 3.5 1.8-7.8 X 10^3 Lymphocytes # (Auto) 1.5 1.0-4.0 X 10^3 Monocytes # (Auto) 0.8 0.0-1.0 X 10^3 Eosinophils # (Auto) 0.2 0.0-0.3 10^3/uL Basophils # (Auto) 0.1 0.0-0.1 10^3/uL Immature Granulocyte # (Auto) 0.0 0.0-0.1 10^3/uL Prothrombin Time 13.6 12.2-14.7 SEC INR Comment 1.0 0.8-1.4 Sodium Level 138 135-145 MMOL/L Potassium Level 3.6 3.6-5.0 MMOL/L Chloride Level 104 98-107 MMOL/L Carbon Dioxide Level 25 21-32 MMOL/L Anion Gap 9 5-14 MMOL/L Blood Urea Nitrogen 14 7-18 MG/DL Creatinine 0.87 0.60-1.30 MG/DL Estimat Glomerular Filtration Rate > 60 BUN/Creatinine Ratio 16 Glucose Level 135 H 70-105 MG/DL Calcium Level 9.7 8.5-10.1 MG/DL Corrected Calcium 9.8 8.5-10.1 MG/DL Total Bilirubin 0.4 0.1-1.0 MG/DL Aspartate Amino Transf (AST/SGOT) 24 5-34 U/L Alanine Aminotransferase (ALT/SGPT) 18 0-55 U/L Alkaline Phosphatase 47 40-136 U/L Troponin I < 0.30 <0.30 NG/ML Pro-B-Type Natriuretic Peptide 256.6 H <75.0 PG/ML Total Protein 6.5 6.4-8.2 GM/DL Albumin 3.9 3.2-4.5 GM/DL Urine Color YELLOW Urine Clarity CLEAR Urine pH 6.0 5-9 Urine Specific [place] >=1.030 1.016-1.022 Urine Protein NEGATIVE NEGATIVE Urine Glucose (UA) NEGATIVE NEGATIVE Urine Ketones TRACE H NEGATIVE Urine Nitrite NEGATIVE NEGATIVE Urine Bilirubin NEGATIVE NEGATIVE Urine Urobilinogen 0.2 < = 1.0 MG/DL Urine Leukocyte Esterase NEGATIVE NEGATIVE Urine RBC (Auto) NEGATIVE NEGATIVE Urine RBC NONE /HPF Urine WBC RARE /HPF Urine Squamous Epithelial Cells RARE /HPF Urine Crystals NONE /LPF Urine Bacteria TRACE /HPF Urine Casts NONE /LPF Urine Mucus SMALL H /LPF Urine Culture Indicated NO My Orders Orders - CHU COSTA MD Ct Head Wo (09/14/20 12:40) Cbc With Automated Diff (09/14/20 12:40) Comprehensive Metabolic Panel (09/14/20 12:40) Urinalysis (09/14/20 12:40) Troponin I Fs (09/14/20 12:40) Protime With Inr (09/14/20 12:40) Probnp Fs (09/14/20 12:40) Chest 1 View Ap/Pa Only (09/14/20 12:40) Ekg Tracing (09/14/20 12:40) Hydralazine Injection (Apresoline Inject (09/14/20 12:45) Vital Signs/I&O 09/14/20 12:33 Temp 36.9 Pulse 63 Resp 14 B/P (MAP) 164/72 (102) Pulse Ox 97 O2 Delivery Room Air Capillary Refill : Progress Note : Time: 13:28 Progress Note Patient states all symptoms resolved. Patient has no symptoms at this time. [id number] Dr David neurology at [facility]. We did review the patient's CT scan together in the patient's symptoms resolution. Patient's risk factors. Dr. Harper states is okay to send the patient home to make sure he takes a baby aspirin daily. And follow-up with his PCP in the next 2-3 days for further evaluation and workup patient be discharged home per those recommendations. Departure Impression Primary Impression: TIA (transient ischemic attack) Disposition: 01 HOME, SELF-CARE Condition: Stable Departure-Patient Inst. Decision time for Depature: 13:50 Referrals: NO,LOCAL PHYSICIAN (PCP) Primary Care Physician Patient Instructions: Transient Ischemic Attack (DC) Add. Discharge Instructions: Per Dr. Lora neurology at [facility]. She recommends that she take 81 mg baby aspirin daily. She should follow up with her primary care physician in the next 2-3 days for further evaluation and workup for concerns of stroke related type illnesses. Carotid Doppler evaluation full physical exam. If your symptoms were return return immediately to the emergency department. All discharge instructions reviewed with patient and/or family. Voiced understanding. CHU COSTA MD Sep 14, 2020 12:45
--- NOTE | 2020-09-14 12:56 | Diagnostic Imaging Report ---
INDICATION: Stroke-like symptoms. TIME OF EXAM: 12:43 p.m. COMPARISON: Correlation is made with prior chest from 06/15/2020. The heart size is normal. The pulmonary vascularity is unremarkable. The lungs are clear. No infiltrate, effusion or pneumothorax is detected. IMPRESSION: No acute cardiopulmonary process is detected. Dictated by: Dictated on workstation # [id number]
--- NOTE | 2020-09-14 13:06 | Diagnostic Imaging Report ---
PROCEDURE: CT head without contrast. TECHNIQUE: Multiple contiguous axial images were obtained through the brain without the use of intravenous contrast. Auto Exposure Controls were utilized during the CT exam to meet ALARA standards for radiation dose reduction. INDICATION: Right-sided facial numbness. COMPARISON: No prior studies are available for comparison. FINDINGS: Ventricles and sulci are consistent with the patient's age. Moderate periventricular hypodensity is noted consistent with senescent change. 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 No sulcal effacement or midline shift is identified. No acute intra-axial or extra-axial hemorrhage is detected. Cisterns are patent. Visualized paranasal sinuses are clear. IMPRESSION: Chronic and senescent changes. No acute intracranial process is detected. Dictated by: Dictated on workstation # [id number]
[2020-09-14 13:31] LABS: BASOPHILS # (AUTO) 0.1 10^3/uL (0.0-0.1); BASOPHILS % (AUTO) 1 % (0-10); EOSINOPHILS # (AUTO) 0.2 10^3/uL (0.0-0.3); EOSINOPHILS % (AUTO) 3 % (0-10); HEMATOCRIT 37 % (40-54); HEMOGLOBIN 12.7 G/DL (13.3-17.7); LYMPHOCYTES # (AUTO) 1.5 X 10^3 (1.0-4.0); LYMPHOCYTES % (AUTO) 25 % (12-44); MEAN CORPUSCULAR HEMOGLOBIN 29 PG (25-34); MEAN CORPUSCULAR HGB CONC 34 G/DL (32-36); MEAN CORPUSCULAR VOLUME 86 FL (80-99); MONOCYTES # (AUTO) 0.8 X 10^3 (0.0-1.0); MONOCYTES % (AUTO) 14 % (0-12); NEUTROPHILS # (AUTO) 3.5 X 10^3 (1.8-7.8); NEUTROPHILS % (AUTO) 57 % (42-75); PLATELET COUNT 225 10^3/uL (130-400); WHITE BLOOD COUNT 6.1 10^3/uL (4.3-11.0)
[2020-09-14 13:38] LABS: PROTHROMBIN TIME PATIENT 13.6 SEC (12.2-14.7)
[2020-09-14 13:51] LABS: BUN/CREATININE RATIO 16; CALCIUM 9.7 MG/DL (8.5-10.1); CARBON DIOXIDE 25 MMOL/L (21-32); CHLORIDE 104 MMOL/L (98-107); CREATININE SERUM 0.87 MG/DL (0.60-1.30); GFR ESTIMATED > 60; GLUCOSE 135 MG/DL (70-105); POTASSIUM 3.6 MMOL/L (3.6-5.0); SODIUM 138 MMOL/L (135-145)
[2020-09-14 13:52] LABS: ALANINE AMINOTRANSFERASE 18 U/L (0-55); ALBUMIN 3.9 GM/DL (3.2-4.5); ALKALINE PHOSPHATASE 47 U/L (40-136); BILIRUBIN,TOTAL 0.4 MG/DL (0.1-1.0); TOTAL PROTEIN 6.5 GM/DL (6.4-8.2)
[2020-09-14 14:31] LABS: CLARITY,URINE CLEAR; COLOR,URINE YELLOW
[2020-09-14 14:32] LABS: BACTERIA,URINE TRACE /HPF; BILIRUBIN,URINE NEGATIVE (NEGATIVE); GLUCOSE, URINE (UA) NEGATIVE (NEGATIVE); KETONES,URINE TRACE (NEGATIVE); LEUKOCYTE ESTERASE ,URINE NEGATIVE (NEGATIVE); NITRITE,URINE NEGATIVE (NEGATIVE); PROTEIN,URINE NEGATIVE (NEGATIVE); SQUAMOUS EPITHELIAL CELL,UR RARE /HPF; WBC,URINE RARE /HPF
[2020-09-14 14:56] VITALS: BP 154/79
== END 2020-09-14 14:56 | disposition home or self-care (01) ==
LOC: EDUNIT# 12:32 → ER FS 12:34
DX: G45.9 Transient cerebral ischemic attack, unspecified (principal); Z87.891 Personal history of nicotine dependence; Z95.5 Presence of coronary angioplasty implant and graft; Z87.820 Personal history of traumatic brain injury; Z88.5 Allergy status to narcotic agent; Z88.8 Allergy status to other drugs, medicaments and biological substances
CPT/HCPCS: 36415; 70450; 71045; 80053; 81000; 83880; 84484; 85025; 85610; 93005

== ENCOUNTER 2020-09-15 10:37 | Emergency (ER) | payer MEDICARE, OTHER ==
--- NOTE | 2020-09-15 11:24 | ED Neurological Problem ---
General Chief Complaint: Neuro-Stroke Like Symptoms Stated Complaint: RT HAND/FACIAL NUMBNESS Source: patient Exam Limitations: no limitations History of Present Illness Date Seen by Provider: Sep 15, 2020 Time Seen by Provider: 11:15 Initial Comments Patient complains of numbness in the right index finger the right ulnar side of his thumb and to the right lateral lip and mid face area along the jawline. Symptoms have been going on since 5 PM last night is no motor weakness is been no vision loss is been no other complaints of headache should have these symptoms yesterday lasted for an extended period of time had a CAT scan evaluation neurology consultation was felt to add aspirin to his regimen of Plavix and to have workup with his primary care provider. Timing/Duration: 24 hours Severity: mild Associated Symptoms: denies symptoms Allergies and Home Medications Allergies Coded Allergies: Mwjtbhg-Bqr-Xmo Reductase Inhibitor (Verified Allergy, Unknown, 06/15/20) morphine (Verified Allergy, Unknown, 06/15/20) phenytoin (Verified Allergy, Unknown, 06/15/20) Home Medications Cyclobenzaprine HCl 10 Mg Tablet, 10 MG PO Q8H PRN for SPASMS Prescribed by: ARCHIE HEIN on 06/15/20 1157 Ibuprofen 800 Mg Tablet, 800 MG PO Q8H PRN for PAIN Prescribed by: ARCHIE HEIN on 06/15/20 1157 Oxycodone HCl/Acetaminophen 1 Each Tablet, 1 TAB PO Q4H Prescribed by: TERRELL NICOLE on 04/01/20 1516 Patient Home Medication List Home Medication List Reviewed: Yes Review of Systems Review of Systems Constitutional: no symptoms reported Eyes: No Symptoms Reported; Denies Blurred Vision, Denies Decreased Acuity, Denies Vision Changes Ears, Nose, Mouth, Throat: no symptoms reported Respiratory: no symptoms reported Cardiovascular: no symptoms reported Gastrointestinal: no symptoms reported Genitourinary: no symptoms reported Musculoskeletal: no symptoms reported Skin: no symptoms reported Psychiatric/Neurological: See HPI All Other Systems Reviewed Negative Unless Noted: Yes Past Jirsryp-Zzjujc-Tcldcx Hx Past Med/Social Hx: Reviewed Nursing Past Med/Soc Hx Patient Social History Type Used: Cigarettes Former Smoker, Quit: Nov 09, 1989 2nd Hand Smoke Exposure: No Recent Hopitalizations: No Immunizations Up To Date Tetanus Booster (TDap): Unknown Seasonal Allergies Seasonal Allergies: No Past Medical History Surgeries: Yes (Bilat Total Hip, R TKR, Rt foot Biopsy, Thyroid lobectomy) Appendectomy, Coronary Stent, Orthopedic Respiratory: No Cardiac: Yes Coronary Artery Disease, High Cholesterol, Hypertension Neurological: Yes (Contusion to brain) Genitourinary: No Gastrointestinal: Yes Gastroesophageal Reflux Musculoskeletal: No Endocrine: Yes (Borderline Diabetic) HEENT: No Cancer: No Psychosocial: No Integumentary: Yes (Dermatitis) Recent Skin Changes Blood Disorders: No Physical Exam Vital Signs Vital Signs - First Documented 09/15/20 10:45 Temp 36.2 Pulse 59 Resp 18 B/P (MAP) 143/66 (91) Pulse Ox 98 O2 Delivery Room Air Capillary Refill : Height, Weight, BMI Height: '" Weight: lbs. oz. kg; 35.00 BMI Method: General Appearance: WD/WN, no apparent distress HEENT: PERRL/EOMI, normal ENT inspection, TMs normal, other (visual rashid by Kupffer in mentation was normal bilateral eyes, funduscopic exam normal) Neck: non-tender, full range of motion Respiratory: chest non-tender, lungs clear, normal breath sounds Cardiovascular: normal peripheral pulses, regular rate, rhythm, no edema Gastrointestinal: normal bowel sounds, non tender Back: normal inspection Extremities: normal range of motion, non-tender, normal inspection Crainal Nerves: normal hearing, normal speech, PERRL; No abnormal eye position, No abnormal gag reflex, No abnormal speech, No facial asymmetry, No facial droop ; facial paresthesias; No facial weakness Coordination/Gait: normal gait, negative Romberg's sign Motor/Sensory: no motor deficit, no sensory deficit, no pronator drift Skin: normal color, warm/dry Stroke Onset of Symptoms Onset of Symptoms: Yes (1700 on 14 September) NIH Stroke Scale Assessment Select: Initial Level of Consciousness: 0=Alert (0), Level of Consciousness- Questions: 0=Answers both month/age (0), LOC Commands: 0=Performs both tasks (0), Gaze: Normal (0), Visual Rashid: 0=No visual loss (0), Facial Movement (Facial Paresis): 0=Normal symmetrical mnt (0), Motor Function-Arms Right: 0=No drift (0), Motor Function-Arms Left: 0=No drift (0), Motor Function-Legs Right: 0=No drift (0), Motor Function-Legs Left: 0=No drift (0), Limb Ataxia: 0=Absent (0), Best Language: 0=No aphasia (0), Extinction & Inattention: 0=No abnormality (0), Total: 0 Progress/Results/Core Measures Results/Orders Lab Results Laboratory Tests Test 09/15/20 11:35 Range/Units White Blood Count 5.5 4.3-11.0 10^3/uL Red Blood Count 4.45 4.35-5.85 10^6/uL Hemoglobin 13.0 L 13.3-17.7 G/DL Hematocrit 38 L 40-54 % Mean Corpuscular Volume 86 80-99 FL Mean Corpuscular Hemoglobin 29 25-34 PG Mean Corpuscular Hemoglobin Concent 34 32-36 G/DL Red Cell Distribution Width 13.3 10.0-14.5 % Platelet Count 219 130-400 10^3/uL Mean Platelet Volume 10.0 7.4-10.4 FL Immature Granulocyte % (Auto) 0 % Neutrophils (%) (Auto) 59 42-75 % Lymphocytes (%) (Auto) 27 12-44 % Monocytes (%) (Auto) 10 0-12 % Eosinophils (%) (Auto) 3 0-10 % Basophils (%) (Auto) 1 0-10 % Neutrophils # (Auto) 3.3 1.8-7.8 X 10^3 Lymphocytes # (Auto) 1.5 1.0-4.0 X 10^3 Monocytes # (Auto) 0.6 0.0-1.0 X 10^3 Eosinophils # (Auto) 0.2 0.0-0.3 10^3/uL Basophils # (Auto) 0.1 0.0-0.1 10^3/uL Immature Granulocyte # (Auto) 0.0 0.0-0.1 10^3/uL Neutrophils % (Manual) 58 % Lymphocytes % (Manual) 25 % Monocytes % (Manual) 10 % Eosinophils % (Manual) 3 % Basophils % (Manual) 0 % Band Neutrophils 1 % Atypical Lymphocytes 3 % Blood Morphology Comment NORMAL Prothrombin Time 13.4 12.2-14.7 SEC INR Comment 1.0 0.8-1.4 Sodium Level 137 135-145 MMOL/L Potassium Level 4.1 3.6-5.0 MMOL/L Chloride Level 103 98-107 MMOL/L Carbon Dioxide Level 25 21-32 MMOL/L Anion Gap 9 5-14 MMOL/L Blood Urea Nitrogen 14 7-18 MG/DL Creatinine 0.85 0.60-1.30 MG/DL Estimat Glomerular Filtration Rate > 60 BUN/Creatinine Ratio 16 Glucose Level 163 H 70-105 MG/DL Calcium Level 9.8 8.5-10.1 MG/DL Corrected Calcium 10.0 8.5-10.1 MG/DL Total Bilirubin 0.4 0.1-1.0 MG/DL Aspartate Amino Transf (AST/SGOT) 24 5-34 U/L Alanine Aminotransferase (ALT/SGPT) 17 0-55 U/L Alkaline Phosphatase 46 40-136 U/L Total Protein 6.8 6.4-8.2 GM/DL Albumin 3.7 3.2-4.5 GM/DL My Orders Orders - JAKE RUST DO Cbc And Manual Diff (09/15/20 11:28) Comprehensive Metabolic Panel (09/15/20 11:28) Protime With Inr (09/15/20 11:28) Ekg Tracing (09/15/20 11:28) Ct Angio Head/Neck (09/15/20 13:14) Iohexol Injection (Omnipaque 350 Mg/Ml 1 (09/15/20 13:30) Received Contrast (Hold Metformin- Contr (09/15/20 13:30) Ns (Ivpb) (Sodium Chloride 0.9% Ivpb Bag (09/15/20 13:30) Medications Given in ED Current Medications Medications Dose Ordered Sig/Fabiano Route Start Time Stop Time Status Last Admin Dose Admin Iohexol 75 ml ONCE ONCE IV 09/15/20 13:30 09/15/20 15:02 DC 09/15/20 14:00 75 ML Sodium Chloride 100 ml ONCE ONCE IV 09/15/20 13:30 09/15/20 15:02 DC 09/15/20 14:00 100 ML Vital Signs/I&O 09/15/20 10:45 Temp 36.2 Pulse 59 Resp 18 B/P (MAP) 143/66 (91) Pulse Ox 98 O2 Delivery Room Air Progress Progress Note : Progress Note Patient presented yesterday with paresthesias to the right thumb and index finger and face had a compressive stroke evaluation with neurology consultation was felt to not be compatible with a stroke syndrome and was recommended discharge home and outpatient follow-up patient had symptoms recur yesterday evening and has come back in today because of increasing concern. Physical exam still shows NIH of 0 no objective deficit. The plan will be basic evaluation with neurology consultation pending need for further diagnostic studies. Initial ECG Impression Date: Sep 15, 2020 Initial ECG Impression Time: 11:33 Initial ECG Rate: 53 Initial ECG Rhythm: Normal Sinus, S.Cyrus Initial ECG Intervals: Normal Comment Normal sinus bradycardia at [address] occasional PAC no acute ST segment abnormalities Consults : Consults Notes [address] CHRISTENSEN at stroke neurologist who recommended a CT angiogram of the head and neck if there was no critical carotid stenosis he was fine with the patient being discharged home for outpatient workup if there were critical carotid stenosis he wished to have the patient transferred to . I repeated this Zbigniew understood the plan explained to the patient IV was established CTA was ordered were awaiting results in the interval time the patient has been up to the bathroom he pulled himself off the monitor so that a bedside chair and otherwise been functioning completely normal. Departure Communication (Admissions) Spoke with Dr. CHRISTENSEN stroke neurologist at who recommended a CT angiogram of the carotid arteries were not included wanted to send the patient home to follow up as an outpatient this was discussed with the patient Impression Primary Impression: Complaint of paresthesia Additional Impressions: Facial paresthesia Hand paresthesia Disposition: 01 HOME, SELF-CARE Condition: Improved Departure-Patient Inst. Decision time for Depature: 14:39 Referrals: NO,LOCAL PHYSICIAN (PCP) Primary Care Physician Your primary care provider or the neurology service at JAKE RUST DO Sep 15, 2020 11:24
[2020-09-15 12:15] LABS: HEMATOCRIT 38 % (40-54); MEAN CORPUSCULAR HEMOGLOBIN 29 PG (25-34); PROTHROMBIN TIME PATIENT 13.4 SEC (12.2-14.7); WHITE BLOOD COUNT 5.5 10^3/uL (4.3-11.0)
[2020-09-15 12:16] LABS: ATYPICAL LYMPHOCYTES 3 %; BAND NEUTROPHILS 1 %; BASOPHILS # (AUTO) 0.1 10^3/uL (0.0-0.1); BASOPHILS % (AUTO) 1 % (0-10); BASOPHILS % (MANUAL) 0 %; EOSINOPHILS # (AUTO) 0.2 10^3/uL (0.0-0.3); EOSINOPHILS % (AUTO) 3 % (0-10); EOSINOPHILS % (MANUAL) 3 %; LYMPHOCYTES # (AUTO) 1.5 X 10^3 (1.0-4.0); LYMPHOCYTES % (AUTO) 27 % (12-44); LYMPHOCYTES % (MANUAL) 25 %; MEAN CORPUSCULAR HGB CONC 34 G/DL (32-36); MEAN CORPUSCULAR VOLUME 86 FL (80-99); MONOCYTES # (AUTO) 0.6 X 10^3 (0.0-1.0); MONOCYTES % (AUTO) 10 % (0-12); MONOCYTES % (MANUAL) 10 %; NEUTROPHILS # (AUTO) 3.3 X 10^3 (1.8-7.8); NEUTROPHILS % (AUTO) 59 % (42-75); NEUTROPHILS % (MANUAL) 58 %; PLATELET COUNT 219 10^3/uL (130-400)
[2020-09-15 12:17] LABS: CARBON DIOXIDE 25 MMOL/L (21-32); CHLORIDE 103 MMOL/L (98-107); POTASSIUM 4.1 MMOL/L (3.6-5.0); RBC MORPH NORMAL; SODIUM 137 MMOL/L (135-145)
[2020-09-15 12:18] LABS: ALANINE AMINOTRANSFERASE 17 U/L (0-55); ALBUMIN 3.7 GM/DL (3.2-4.5); ALKALINE PHOSPHATASE 46 U/L (40-136); BILIRUBIN,TOTAL 0.4 MG/DL (0.1-1.0); BUN/CREATININE RATIO 16; CALCIUM 9.8 MG/DL (8.5-10.1); CREATININE SERUM 0.85 MG/DL (0.60-1.30); GFR ESTIMATED > 60; GLUCOSE 163 MG/DL (70-105); TOTAL PROTEIN 6.8 GM/DL (6.4-8.2)
--- NOTE | 2020-09-15 13:10 | NUR ---
[facility] Transfer Center calling for Dr to speak with Neurologist.
--- NOTE | 2020-09-15 13:15 | NUR ---
Dr was advised the need to perform a CTA head per [facility].
[2020-09-15] MEDS ORDERED: NS 100 ML (IVPB) BAG IV ONE (13:30)
[2020-09-15] MEDS ORDERED: IOHEXOL 350 MG/ML 100 ML (OMNIPAQUE 350) VIAL IV ONE (13:30)
[2020-09-15] MEDS ORDERED: HOLD METFORMIN - RECEIVED CONTRAST 20 ML VIAL IV SCH (13:30)
--- NOTE | 2020-09-15 14:00 | NUR ---
Pt up to bathroom, advised staff would not want him to walk to car to obtain items he wanted. Pt has SL intact, pending results. Quinlan had been given but pt elected after his CTA to get out of bed and sit in a chair off of monitoring and Dr notified. Pt wanted a sweater and another item. Pt was offered to choose if he desired staff to obtain but medical screening exam is not completed.
--- NOTE | 2020-09-15 14:15 | NUR ---
Pt passes dysphagia exam and able to drink some water. Pt is out of room frequently disregarding frequent instruction to remain in room. Pt also determines to walk to physician's office to ask random questions prn and again request pt to remain in room. RN to patient's truck with pt permission as he wanted a sweater and a cell phone "lying on console". Pt unlocked vehicle with remote and RN retrieved sweater and no cell phone on console, a checkbook size appearing item sitting on console. Pt has several boxes of shotgun shells and rifle casings in boxes on floor board and a hard plastic gun type case lying in truck. Pt's truck was locked as nurse exited truck with pt's sweater. Pt was noted to have not remained in room but pacing in hallway in ER. Unable to keep patient on monitor, notified it appears to agitate pt.
--- NOTE | 2020-09-15 14:27 | Diagnostic Imaging Report ---
PROCEDURE: CT angiography of the head and CT angiography of the neck with and without contrast. TECHNIQUE: Contiguous noncontrast images were obtained from the skull base through the vertex. After intravenous contrast administration, helical CT angiography of the neck was performed. Source data was reformatted into 3D MIP projections. Delayed post contrast acquisition was also obtained. Auto Exposure Controls were utilized during the CT exam to meet ALARA standards for radiation dose reduction. INDICATION: Persistent tingling of the extremities. Right-sided facial numbness. COMPARISON: CT head of prior day. FINDINGS: NONCONTRAST HEAD: No intracranial hyperdense hemorrhage or space-occupying mass. No hydrocephalus or midline shift. 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 No ramos-white matter loss has developed in the interim. Encephalomalacia in the left temporal region is stable in appearance. CTA NECK: No dissection of the aortic arch. Great vessels of the aortic arch are widely patent. Bilateral common carotid arteries are patent with scattered atherosclerotic plaques. Calcified atherosclerotic plaquing in the origin of the right ICA results in 25-30% luminal narrowing per NASCET criteria. Atherosclerotic plaquing at the origin of the left ICA does not result in luminal narrowing. Cervical segments of the internal carotid arteries. Vertebral arteries are codominant and appear grossly patent throughout the neck. Left-sided thyroid nodule measures 1.8 x 1.5 cm. Lung apices are clear. No cervical lymphadenopathy. CTA HEAD: There is suboptimal opacification of the intracranial arteries which limits fine detail. Allowing for this, the bilateral distal internal carotid arteries are grossly patent. The M1 division of the middle cerebral arteries are also grossly patent. M2 divisions are fairly symmetric. Anterior cerebral arteries are grossly patent. Basilar artery is diminutive and may have multifocal tandem stenoses present but it appears grossly patent. Posterior cerebral arteries appear patent centrally but are not well seen distally. No saccular aneurysm can be confirmed. No pathologic enhancement on delayed phase images. IMPRESSION: 1. Suboptimal opacification of the intracranial arteries limits fine detailed assessment. Allowing for this, there is no intracranial large vessel occlusion. 2. No high-grade stenosis or occlusion of the neck arteries. There is approximately 25-30% luminal narrowing at the right ICA origin due to calcified plaquing. 3. Indeterminate left thyroid nodule. Consider follow-up thyroid ultrasound on an outpatient, nonemergent basis. 4. On noncontrast imaging, no intracranial hemorrhage or new territorial infarct. Dictated by: Dictated on workstation # [id number]
[2020-09-15 14:50] VITALS: BP 145/60
--- NOTE | 2020-09-15 14:50 | NUR ---
Pt discharged at this time after removal of SL. Pt appears attention distracted and nurse review of follow up with PCP instruct.
== END 2020-09-15 14:50 | disposition home or self-care (01) ==
LOC: EDUNIT# 10:37 → ER FS 10:39
DX: R20.2 Paresthesia of skin (principal); I10 Essential (primary) hypertension; Z88.5 Allergy status to narcotic agent; Z88.8 Allergy status to other drugs, medicaments and biological substances; Z87.891 Personal history of nicotine dependence; Z96.651 Presence of right artificial knee joint; Z95.5 Presence of coronary angioplasty implant and graft; Z87.820 Personal history of traumatic brain injury
CPT/HCPCS: 36415; 70496; 70498; 80053; 85007; 85027; 85610; 93005

== ENCOUNTER 2022-07-24 16:43 | Emergency (ER) | payer MEDICARE, OTHER ==
[~2022-07-24] VITALS: Ht 172.7 cm; Wt 109.7 kg
[~2022-07-24 16:43] MED LIST changes: +CYCL10TA25 PO; -CYCL10TA9 PO
--- NOTE | 2022-07-24 17:11 | ED Headache ---
General Chief Complaint: Head/Cervical Problems Stated Complaint: HEADACHE,DIZZY Source: patient Exam Limitations: no limitations History of Present Illness Date Seen by Provider: Jul 24, 2022 Time Seen by Provider: 16:44 Initial Comments 87yoM with PMH of CAD with stents, HTN, previous PE on Eliquis coming in due to headache and feeling light headed. He woke up from a nap and felt a 4/10 throbbing headache. He took his blood pressure and it was 160/95. He takes blood pressure medicine in the morning and night, and did take it today. He has as needed hydralazine that he can take up to 3 times a day which he took a couple hours ago. It was 25 mg. Symptoms continued so he presented to the ER. He says he has a chronic daily headache that is around a 1-2 out of 10 in intensity every day, and today is just slightly more than that. He denies any dizziness like the room is spinning, weakness, numbness, vision changes, speech changes, chest pain, shortness of breath, abdominal pain, nausea, vomiting, diarrhea, rash, or any other concerns. Of note, the patient says he has had two pieces of toast today and nothing really else to eat or drink. Allergies and Home Medications Allergies Coded Allergies: Fiseivb-Mfv-Xaf Reductase Inhibitor (Verified Allergy, Unknown, 06/15/20) morphine (Verified Allergy, Unknown, 06/15/20) phenytoin (Verified Allergy, Unknown, 06/15/20) Patient Home Medication List Home Medication List Reviewed: Yes Cyclobenzaprine HCl (Cyclobenzaprine HCl) 10 Mg Tablet, 10 MG PO Q8H PRN for SPASMS Prescribed by: ARCHIE HEIN on 06/15/20 1157 Ibuprofen (Ibuprofen) 800 Mg Tablet, 800 MG PO Q8H PRN for PAIN Prescribed by: ARCHIE ELAINEVENSTINE on 06/15/20 1157 Oxycodone HCl/Acetaminophen (Percocet 5-325 mg Tablet) 1 Each Tablet, 1 TAB PO Q4H Prescribed by: TERRELL NICOLE on 04/01/20 1516 Review of Systems Review of Systems Constitutional: No fever Eyes: Denies Blurred Vision Ears, Nose, Mouth, Throat: denies ear pain Respiratory: No cough Cardiovascular: No chest pain Gastrointestinal: No abdominal pain Genitourinary: no symptoms reported Musculoskeletal: no symptoms reported Skin: no symptoms reported Psychiatric/Neurological: See HPI All Other Systems Reviewed Negative Unless Noted: Yes Past Tolnlrk-Skugrq-Wgnhnc Hx Patient Social History Tobacco Use?: No Smoking Status: Former Smoker Substance use?: No Alcohol Use?: Yes Alcohol type: Beer Alcohol Frequency: Couple times a week Immunizations Up To Date Tetanus Booster (TDap): Unknown Seasonal Allergies Seasonal Allergies: No Past Medical History Surgeries: Yes (Bilat Total Hip, R TKR, Rt foot Biopsy, Thyroid lobectomy) Appendectomy, Coronary Stent, Orthopedic Respiratory: No Cardiac: Yes Coronary Artery Disease, High Cholesterol, Hypertension Neurological: Yes (Contusion to brain) Genitourinary: No Gastrointestinal: Yes Gastroesophageal Reflux Musculoskeletal: No Endocrine: Yes (Borderline Diabetic) HEENT: No Cancer: No Psychosocial: No Integumentary: Yes (Dermatitis) Recent Skin Changes Blood Disorders: No Physical Exam Vital Signs Vital Signs - First Documented 07/24/22 16:45 Temp 36.7 Pulse 73 Resp 16 B/P (MAP) 161/72 (101) O2 Delivery Room Air Capillary Refill : Height, Weight, BMI Height: '" Weight: lbs. oz. kg; 35.00 BMI Method: General Appearance: WD/WN, no apparent distress HEENT: PERRL/EOMI, normal ENT inspection, pharynx normal Neck: non-tender, full range of motion, supple, normal inspection Cardiovascular: regular rate, rhythm, no edema, no murmur Respiratory: chest non-tender, lungs clear, normal breath sounds, no respiratory distress, no accessory muscle use Gastrointestinal: normal bowel sounds, non tender, soft; No distended, No guarding, No rebound Back: normal inspection, no CVA tenderness, no vertebral tenderness Extremities: normal range of motion, non-tender, normal inspection, no pedal edema, no calf tenderness, normal capillary refill Psychiatric: alert, oriented x 3 Crainal Nerves: normal speech, PERRL Coordination/Gait: normal finger to nose, normal gait, negative Romberg's sign, other (Normal tandem gait) Motor/Sensory: no motor deficit, no sensory deficit, no pronator drift Skin: normal color, warm/dry Lymphatic: no adenopathy Progress/Results/Core Measures Results/Orders Lab Results Laboratory Tests Test 07/24/22 17:30 Range/Units White Blood Count 6.3 4.3-11.0 10^3/uL Red Blood Count 4.58 4.30-5.52 10^6/uL Hemoglobin 12.9 L 13.3-17.7 g/dL Hematocrit 39 L 40-54 % Mean Corpuscular Volume 86 80-99 fL Mean Corpuscular Hemoglobin 28 25-34 pg Mean Corpuscular Hemoglobin Concent 33 32-36 g/dL Red Cell Distribution Width 13.6 10.0-14.5 % Platelet Count 223 130-400 10^3/uL Mean Platelet Volume 10.5 9.0-12.2 fL Immature Granulocyte % (Auto) 0 % Neutrophils (%) (Auto) 66 42-75 % Lymphocytes (%) (Auto) 23 12-44 % Monocytes (%) (Auto) 8 0-12 % Eosinophils (%) (Auto) 2 0-10 % Basophils (%) (Auto) 1 0-10 % Neutrophils # (Auto) 4.2 1.8-7.8 10^3/uL Lymphocytes # (Auto) 1.5 1.0-4.0 10^3/uL Monocytes # (Auto) 0.5 0.0-1.0 10^3/uL Eosinophils # (Auto) 0.1 0.0-0.3 10^3/uL Basophils # (Auto) 0.1 0.0-0.1 10^3/uL Immature Granulocyte # (Auto) 0.0 0.0-0.1 10^3/uL Prothrombin Time 14.0 12.2-14.7 SEC INR Comment 1.0 0.8-1.4 Activated Partial Thromboplast Time 29 24-35 SEC Sodium Level 139 135-145 MMOL/L Potassium Level 3.8 3.6-5.0 MMOL/L Chloride Level 103 98-107 MMOL/L Carbon Dioxide Level 26 21-32 MMOL/L Anion Gap 10 5-14 MMOL/L Blood Urea Nitrogen 7 7-18 MG/DL Creatinine 0.72 0.60-1.30 MG/DL Estimat Glomerular Filtration Rate 90 BUN/Creatinine Ratio 10 Glucose Level 125 H 70-105 MG/DL Calcium Level 9.6 8.5-10.1 MG/DL My Orders Orders - SUNNY MATUTE MD Basic Metabolic Panel (07/24/22 17:05) Cbc With Automated Diff (07/24/22 17:05) Protime With Inr (07/24/22 17:05) Partial Thromboplastin Time (07/24/22 17:05) Ct Head Wo (07/24/22 17:05) Acetaminophen Tablet (Tylenol Tablet) (07/24/22 17:15) Medications Given in ED Current Medications Medications Dose Ordered Sig/Fabiano Route Start Time Stop Time Status Last Admin Dose Admin Acetaminophen 1,000 mg ONCE ONCE PO 07/24/22 17:15 07/24/22 17:16 DC 07/24/22 17:26 1,000 MG Vital Signs/I&O 07/24/22 16:45 Temp 36.7 Pulse 73 Resp 16 B/P (MAP) 161/72 (101) O2 Delivery Room Air Progress Progress Note : Progress Note 87-year-old male with above history coming in due to headache and feeling lightheaded. ABCs were intact and vitals were stable on presentation although he is hypertensive. Typically is in the 140 systolic and today he is in the 1 60s. He did take his hydralazine. Headache is only slightly worse than usual. CT head without any acute changes. He was given Tylenol with near complete resolution of his headache. His neuro exam on arrival is completely normal including completely normal balance with no concerns for stroke. Diagnostic Imaging Diagonstic Imaging: CT Plain Films/CT/US/NM/MRI: head Comments NAME: BEL[facility]IDER [facility] REC#: [id number] PT STATUS: REG ER : 1935 PHYSICIAN: SUNNY MATUTE MD ADMIT DATE: 07/24/22/ER FS Draft Date of Exam:07/24/22 CT HEAD WO INDICATION: Headache and dizziness. TECHNIQUE: Multiple contiguous axial images were obtained through the brain without the use of intravenous contrast. Auto Exposure Controls were utilized during the CT exam to meet ALARA standards for radiation dose reduction. Comparison made with 09/14/2020. FINDINGS: There are diffuse atrophic changes. There are mild low-density changes in the periventricular white matter compatible with chronic ischemic change. There is no acute hemorrhage or mass effect or midline shift. There is an old lacunar infarct in the left thalamus, which appeared similar on the previous study. There is no new intracranial finding. Calvarial windows are unremarkable. Visualized portions of the sinuses are clear. Orbital contents show no acute finding. IMPRESSION: Atrophic changes and chronic ischemic changes in the deep white matter. Old left thalamic lacunar infarct, similar to the prior study. No acute intracranial abnormality. Dictated on workstation # [id number] Dict: 07/24/22 1720 Trans: 07/24/22 1724 [id number] Interpreted by: MARISABEL MICHEL MD Electronically signed by: Departure Impression Primary Impression: Headache Qualified Codes: G44.209 - Tension-type headache, unspecified, not intractable Additional Impression: Hypertension Qualified Codes: I10 - Essential (primary) hypertension Disposition: 01 HOME, SELF-CARE Condition: Stable Departure-Patient Inst. Decision time for Depature: 16:15 Referrals: NO,LOCAL PHYSICIAN (PCP/Family) Primary Care Physician Patient Instructions: Headache, Adult (DC) Add. Discharge Instructions: Your CT of your head does not show any changes that would be concerning. Continue to take your blood pressure medicine as prescribed including the hydralazine as needed for elevated blood pressure. Try to eat at least 2 substantial meals per day including a protein source and keep up with fluids. Take tylenol 1000mg every 6 hours as needed at home for headache or other pain. SUNNY MATUTE MD Jul 24, 2022 17:11
[2022-07-24] MEDS ORDERED: ACETAMINOPHEN 500 MG TAB (TYLENOL) PO ONE (17:15)
--- NOTE | 2022-07-24 17:25 | Diagnostic Imaging Report ---
INDICATION: Headache and dizziness. TECHNIQUE: Multiple contiguous axial images were obtained through the brain without the use of intravenous contrast. Auto Exposure Controls were utilized during the CT exam to meet ALARA standards for radiation dose reduction. Comparison made with 09/14/2020. FINDINGS: There are diffuse atrophic changes. There are mild low-density changes in the periventricular white matter compatible with chronic ischemic change. There is no acute hemorrhage or mass effect or midline shift. There is an old lacunar infarct in the left thalamus, which appeared similar on the previous study. There is no new intracranial finding. Calvarial windows are unremarkable. Visualized portions of the sinuses are clear. Orbital contents show no acute finding. IMPRESSION: Atrophic changes and chronic ischemic changes in the deep white matter. Old left thalamic lacunar infarct, similar to the prior study. No acute intracranial abnormality. Dictated by: Dictated on workstation # [id number]
[2022-07-24 17:34] LABS: BASOPHILS # (AUTO) 0.1 10^3/uL (0.0-0.1); BASOPHILS % (AUTO) 1 % (0-10); EOSINOPHILS # (AUTO) 0.1 10^3/uL (0.0-0.3); EOSINOPHILS % (AUTO) 2 % (0-10); HEMATOCRIT 39 % (40-54); HEMOGLOBIN 12.9 g/dL (13.3-17.7); LYMPHOCYTES # (AUTO) 1.5 10^3/uL (1.0-4.0); LYMPHOCYTES % (AUTO) 23 % (12-44); MEAN CORPUSCULAR HEMOGLOBIN 28 pg (25-34); MEAN CORPUSCULAR HGB CONC 33 g/dL (32-36); MEAN CORPUSCULAR VOLUME 86 fL (80-99); MEAN PLATELET VOLUME 10.5 fL (9.0-12.2); MONOCYTES # (AUTO) 0.5 10^3/uL (0.0-1.0); MONOCYTES % (AUTO) 8 % (0-12); NEUTROPHILS # (AUTO) 4.2 10^3/uL (1.8-7.8); NEUTROPHILS % (AUTO) 66 % (42-75); PLATELET COUNT 223 10^3/uL (130-400); WHITE BLOOD COUNT 6.3 10^3/uL (4.3-11.0)
[2022-07-24 17:55] LABS: CALCIUM 9.6 MG/DL (8.5-10.1); CREATININE SERUM 0.72 MG/DL (0.60-1.30); POTASSIUM 3.8 MMOL/L (3.6-5.0)
[2022-07-24 18:06] VITALS: BP 159/86
== END 2022-07-24 18:06 | disposition home or self-care (01) ==
LOC: EDUNIT# 16:43 → ER FS 16:44
DX: I10 Essential (primary) hypertension (principal); Z86.711 Personal history of pulmonary embolism; Z95.5 Presence of coronary angioplasty implant and graft; Z87.891 Personal history of nicotine dependence; Z79.01 Long term (current) use of anticoagulants
CPT/HCPCS: 36415; 70450; 80048; 85025; 85610; 85730

== ENCOUNTER 2022-09-25 15:39 | Emergency (ER) | payer MEDICARE, OTHER ==
[~2022-09-25] VITALS: Ht 172 cm; Wt 111.0 kg
[2022-09-25 15:51] VITALS: BP 153/79
--- NOTE | 2022-09-25 15:52 | ED General ---
General Chief Complaint: Facial Problems Stated Complaint: FALL FACIAL/RT HAND INJURIES History of Present Illness Date Seen by Provider: Sep 25, 2022 Time Seen by Provider: 14:58 Initial Comments 87-year-old male who is on a blood thinner for PE, is here with complaints of stumbling over a curb, landing on his face. Pt complains of a swelling to his right forehead which is painful and also his right hand and wrist pain. Pt is able to move his wrist but it is painful. Denies LOC, nausea, vomiting, dizzi ness,chest pain, palpitations, blurry vision. Pt is left hand dominant. Pt was able to get up and drive himself to the ER. Allergies and Home Medications Allergies Coded Allergies: Roepnpg-Sxe-Ivt Reductase Inhibitor (Verified Allergy, Unknown, 06/15/20) morphine (Verified Allergy, Unknown, 06/15/20) phenytoin (Verified Allergy, Unknown, 06/15/20) Patient Home Medication List Home Medication List Reviewed: Yes Cyclobenzaprine HCl (Cyclobenzaprine HCl) 10 Mg Tablet, 10 MG PO Q8H PRN for SPASMS Prescribed by: ARCHIE HEIN on 06/15/20 1157 Ibuprofen (Ibuprofen) 800 Mg Tablet, 800 MG PO Q8H PRN for PAIN Prescribed by: ARCHIE HIEN on 06/15/20 1157 Oxycodone HCl/Acetaminophen (Percocet 5-325 mg Tablet) 1 Each Tablet, 1 TAB PO Q4H Prescribed by: TERRELL NICOLE on 04/01/20 1516 Review of Systems Review of Systems Constitutional: no symptoms reported EENTM: no symptoms reported Respiratory: no symptoms reported Cardiovascular: no symptoms reported Gastrointestinal: no symptoms reported Genitourinary: no symptoms reported Musculoskeletal: joint pain, joint swelling, other Skin: lesions (abrasions) Psychiatric/Neurological: No Symptoms Reported Hematologic/Lymphatic: No Symptoms Reported Immunological/Allergic: no symptoms reported Past Tgjpjiq-Vslwjd-Hdelia Hx Patient Social History Tobacco Use?: No Substance use?: No Alcohol Use?: No Pt feels they are or have been: No Immunizations Up To Date Tetanus Booster (TDap): Unknown Seasonal Allergies Seasonal Allergies: No Past Medical History Surgery/Hospitalization HX: GERD; HTN; Hypothyroidism; BPH; Bilateral hip replacement; Right total knee replacement; Thyroid lobectomy Surgeries: Yes (Bilat Total Hip, R TKR, Rt foot Biopsy, Thyroid lobectomy) Appendectomy, Coronary Stent, Orthopedic Respiratory: No Cardiac: Yes Coronary Artery Disease, High Cholesterol, Hypertension Neurological: Yes (Contusion to brain) Genitourinary: No Gastrointestinal: Yes Gastroesophageal Reflux Musculoskeletal: No Endocrine: Yes (Borderline Diabetic) HEENT: No Cancer: No Psychosocial: No Integumentary: Yes (Dermatitis) Recent Skin Changes Blood Disorders: No Physical Exam Vital Signs Vital Signs - First Documented 09/25/22 15:51 Temp 36.8 Pulse 69 Resp 16 B/P (MAP) 153/79 (103) Pulse Ox 97 O2 Delivery Room Air Capillary Refill : Height, Weight, BMI Height: '" Weight: lbs. oz. kg; 36.00 BMI Method: General Appearance: No Apparent Distress, WD/WN HEENT: PERRL/EOMI, Normal ENT Inspection Neck: Full Range of Motion, Normal Inspection, Non Tender, Supple Respiratory: Chest Non Tender, Lungs Clear Cardiovascular: Regular Rate, Rhythm Back: Normal Inspection, No Vertebral Tenderness Extremity: Normal Inspection (RIGHT HAND AND WRIST: NV bundle intact, no deformity, unrestricted ROM), Normal Range of Motion Neurologic/Psychiatric: Alert, Oriented x3, No Motor/Sensory Deficits, Normal Mood/Affect Skin: Other (abrasion to philtrum, 1.5 cm diameter, superficial abrasion to nos e, right fronyal swelling with 0.25cm superficial lac that is not bleeding, and not requiring sutures or josé miguel.) Progress/Results/Core Measures Suspected Sepsis SIRS Temperature: Pulse: Respiratory Rate: Blood Pressure / Mean: Results/Orders My Orders Orders - TREVON LESLIE MD Hand 3 View Right (09/25/22 15:53) Wrist 3 View Right (09/25/22 15:53) Ct Head/Maxillofacial Wo (09/25/22 15:53) Vital Signs/I&O 09/25/22 15:51 Temp 36.8 Pulse 69 Resp 16 B/P (MAP) 153/79 (103) Pulse Ox 97 O2 Delivery Room Air Capillary Refill : Progress Note : Progress Note 1. FALL: FRONTAL SCALP HEMATOMA & FACIAL ABRASION - CT HEAD & MAXILLOFACIAL: Right frontal scalp hematoma, no fractures or bleed - Ice/ NSAID or Tylenol for pain and swelling - Concussion precautions given -The patient was seen in the ED, and treated appropriately to presentation at a specific point in time. Patient is informed that there is a possibility that disease and illness can evolve and change in acuity rapidly or slowly after patient is discharged from the ER. Precautionary advice given to the patient for immediate return to ER if symptoms worsen or do not resolve, and to seek emergency care sooner rather than later. Pt also advised on the importance of PCP follow up and compliance with management and follow up plan with PCP and/or specialist, as this is part of the management plan. Pt verbally expressed understanding. 2. RIGHT HAND SPRAIN: - XR RIGHT WRIST/ HAND: - SHANELL bandage/ ice - Tylenol or Ibuprofen prn pain -Follow-up with PCP and/or Ortho within the next 7 days -Advised that occasionally fractures may only appear on x-ray a week or so after the initial injury, and if pain and symptoms persist, repeat x-ray will be needed in 7 to 10 days. Diagnostic Imaging Diagonstic Imaging: Xray, CT Plain Films/CT/US/NM/MRI: facial bones, head, other Comments [facility] [place] [place] NAME: BELA HAIDER [facility] REC#: [id number] PT STATUS: REG ER : 1935 PHYSICIAN: TREVON LESLIE MD ADMIT DATE: 09/25/22/ER FS Draft Date of Exam:09/25/22 HAND 3 VIEW RIGHT HAND 3 VIEW RIGHT INDICATION: Right hand pain COMPARISON: None available. TECHNIQUE: 3 views of right hand FINDINGS: No acute fracture within the right hand. Alignment is normal. No osseous erosions. Mineralization of the TFC disc suggests chondrocalcinosis. No cystic change throughout the carpal bones. 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 IMPRESSION: No acute fracture within the right hand. Dictated on workstation # [id number] Dict: 09/25/22 1631 Trans: 09/25/22 1645 [facility] [id number] Interpreted by: ALISIA CHAVIRA MD Electronically signed by: [facility] [place] NAME: BELA HAIDER [facility] REC#: [id number] PT STATUS: REG ER : 1935 PHYSICIAN: TREVON LESLIE MD ADMIT DATE: 09/25/22/ER FS Draft Date of Exam:09/25/22 WRIST 3 VIEW RIGHT INDICATION: Fall, pain. EXAMINATION: Right wrist from 09/25/2022. FINDINGS: Three views of the wrist. There is increased density in the region of the triangular fibrocartilage, consistent with CPPD arthropathy. Narrowing and spurring at the radiocarpal joint and first carpometacarpal joint noted. There are no fractures or dislocations. IMPRESSION: 1. Chronic findings with no acute osseous abnormality appreciated. Dictated on workstation # [id number] Dict: 09/25/22 1631 Trans: 09/25/22 1636 [id number] Interpreted by: CHANO CIFUENTES MD Electronically signed by: [facility] [place] [place] NAME: BELA HAIDER [facility] REC#: [id number] PT STATUS: REG ER : 1935 PHYSICIAN: TREVON LESLIE MD ADMIT DATE: 09/25/22/ER FS Draft Date of Exam:09/25/22 CT HEAD/MAXILLOFACIAL WO CLINICAL INDICATION: Patient fell with hematoma on the right side of forehead. Patient with right side bloody nose. Patient on blood thinners. Exam: Axial Head CT without IV contrast with sagittal and coronal reformations. Axial Maxillofacial CT scan without IV contrast with sagittal and coronal reformations. Auto Exposure Controls were utilized during the CT exam to meet ALARA standards for radiation dose reduction. COMPARISON: Head CT without contrast dated 07/24/2022. FINDINGS: Head and Maxillofacial CT: There is no evidence of acute cerebral infarct, intracranial hemorrhage, or gross mass effect. The brain parenchymal volume appears appropriate for patient's age. 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 Stable small prominent perivascular space or chronic lacunar infarct involving the left basal ganglia region. There are mild confluent low-attenuation white matter changes involving both cerebral hemispheres. Stable encephalomalacia involving the basilar aspect of the left temporal lobe. There is no significant midline shift or herniation. There is no evidence of hydrocephalus. The basal cisterns are unremarkable. There is a moderate-sized extracranial hematoma and soft tissue swelling involving the right forehead region. There is no skull or maxillofacial fracture. Otherwise, the skull, extracranial soft tissue, and orbits are unremarkable. There is mild mucosal thickening involving the ethmoid sinus. Temporal bones show no significant abnormality. IMPRESSION: 1: There is no evidence of intracranial hemorrhage. 2: There is a moderate-sized area of extracranial soft tissue swelling/hematoma in the right forehead region. There is no skull or maxillofacial fracture. Dictated on workstation # [id number] Dict: 09/25/22 1622 Trans: 09/25/22 1634 [id number] Interpreted by: JUANITA PASTRANA MD Electronically signed by: Departure Impression Primary Impression: Hematoma of frontal scalp Qualified Codes: S00.03XA - Contusion of scalp, initial encounter Additional Impressions: Sprain of right hand Qualified Codes: S63.91XA - Sprain of unspecified part of right wrist and hand, initial encounter Fall Qualified Codes: W19.XXXA - Unspecified fall, initial encounter Disposition: 01 HOME, SELF-CARE Condition: Stable Departure-Patient Inst. Referrals: NO,LOCAL PHYSICIAN (PCP) Primary Care Physician LUACS FINK MD Patient Instructions: Concussion, Adult (DC), HEMATOMA, Taking Care of Bruises, Using Cold for Pain, Wrist Sprain (DC) Add. Discharge Instructions: - SHANELL bandage/ ice application on forehead and hand - Concussion precautions given - Tylenol or Ibuprofen prn pain -Follow-up with PCP and/or Ortho within the next 7 days -Advised that occasionally fractures may only appear on x-ray a week or so after the initial injury, and if pain and symptoms persist, repeat x-ray will be needed in 7 to 10 days. TREVON LESLIE MD Sep 25, 2022 15:52
--- NOTE | 2022-09-25 16:35 | Diagnostic Imaging Report ---
CLINICAL INDICATION: Patient fell with hematoma on the right side of forehead. Patient with right side bloody nose. Patient on blood thinners. Exam: Axial Head CT without IV contrast with sagittal and coronal reformations. Axial Maxillofacial CT scan without IV contrast with sagittal and coronal reformations. Auto Exposure Controls were utilized during the CT exam to meet ALARA standards for radiation dose reduction. COMPARISON: Head CT without contrast dated 07/24/2022. FINDINGS: Head and Maxillofacial CT: There is no evidence of acute cerebral infarct, intracranial hemorrhage, or gross mass effect. The brain parenchymal volume appears appropriate for patient's age. 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 Stable small prominent perivascular space or chronic lacunar infarct involving the left basal ganglia region. There are mild confluent low-attenuation white matter changes involving both cerebral hemispheres. Stable encephalomalacia involving the basilar aspect of the left temporal lobe. There is no significant midline shift or herniation. There is no evidence of hydrocephalus. The basal cisterns are unremarkable. There is a moderate-sized extracranial hematoma and soft tissue swelling involving the right forehead region. There is no skull or maxillofacial fracture. Otherwise, the skull, extracranial soft tissue, and orbits are unremarkable. There is mild mucosal thickening involving the ethmoid sinus. Temporal bones show no significant abnormality. IMPRESSION: 1: There is no evidence of intracranial hemorrhage. 2: There is a moderate-sized area of extracranial soft tissue swelling/hematoma in the right forehead region. There is no skull or maxillofacial fracture. Dictated by: Dictated on workstation # [id number]
--- NOTE | 2022-09-25 16:37 | Diagnostic Imaging Report ---
INDICATION: Fall, pain. EXAMINATION: Right wrist from 09/25/2022. FINDINGS: Three views of the wrist. There is increased density in the region of the triangular fibrocartilage, consistent with CPPD arthropathy. Narrowing and spurring at the radiocarpal joint and first carpometacarpal joint noted. There are no fractures or dislocations. IMPRESSION: 1. Chronic findings with no acute osseous abnormality appreciated. Dictated by: Dictated on workstation # [id number]
--- NOTE | 2022-09-25 16:46 | Diagnostic Imaging Report ---
HAND 3 VIEW RIGHT INDICATION: Right hand pain COMPARISON: None available. TECHNIQUE: 3 views of right hand FINDINGS: No acute fracture within the right hand. Alignment is normal. No osseous erosions. Mineralization of the TFC disc suggests chondrocalcinosis. No cystic change throughout the carpal bones. 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 IMPRESSION: No acute fracture within the right hand. Dictated by: Dictated on workstation # [id number]
== END 2022-09-25 17:30 | disposition home or self-care (01) ==
LOC: EDUNIT# 15:39 → ER FS 15:41
DX: S63.91XA Sprain of unspecified part of right wrist and hand, initial encounter (principal); S00.03XA Contusion of scalp, initial encounter; S00.31XA Abrasion of nose, initial encounter; Z86.711 Personal history of pulmonary embolism; Z79.01 Long term (current) use of anticoagulants; W18.30XA Fall on same level, unspecified, initial encounter
CPT/HCPCS: 70450; 70486; 73110; 73130

== ENCOUNTER 2023-04-01 10:23 | Outpatient (RCR) | payer MEDICARE, OTHER | END 2023-04-08 | disposition home or self-care (01) | PROVIDERS: ATTEND Orthopaedic Surgery | DX: S60.221D Contusion of right hand, subsequent encounter (principal); X58.XXXD Exposure to other specified factors, subsequent encounter ==

== ENCOUNTER 2023-04-15 09:59 | Outpatient (RCR) | payer MEDICARE, OTHER | END 2023-05-08 | disposition home or self-care (01) | PROVIDERS: ATTEND Orthopaedic Surgery | DX: S60.221D Contusion of right hand, subsequent encounter (principal); W19.XXXD Unspecified fall, subsequent encounter ==

== ENCOUNTER 2023-04-19 18:56 | Emergency (ER) | payer MEDICARE, OTHER ==
[~2023-04-19] VITALS: Ht 172.7 cm; Wt 114.4 kg
[2023-04-19 19:17] LABS: BASOPHILS # (AUTO) 0.1 10^3/uL (0.0-0.1); BASOPHILS % (AUTO) 1 % (0-10); EOSINOPHILS # (AUTO) 0.2 10^3/uL (0.0-0.3); EOSINOPHILS % (AUTO) 2 % (0-10); HEMATOCRIT 43 % (40-54); HEMOGLOBIN 14.2 g/dL (13.3-17.7); LYMPHOCYTES # (AUTO) 2.1 10^3/uL (1.0-4.0); LYMPHOCYTES % (AUTO) 30 % (12-44); MEAN CORPUSCULAR HEMOGLOBIN 29 pg (25-34); MEAN CORPUSCULAR HGB CONC 33 g/dL (32-36); MEAN CORPUSCULAR VOLUME 87 fL (80-99); MEAN PLATELET VOLUME 9.7 fL (9.0-12.2); MONOCYTES # (AUTO) 0.7 10^3/uL (0.0-1.0); MONOCYTES % (AUTO) 10 % (0-12); NEUTROPHILS # (AUTO) 3.9 10^3/uL (1.8-7.8); NEUTROPHILS % (AUTO) 57 % (42-75); PLATELET COUNT 269 10^3/uL (130-400); WHITE BLOOD COUNT 6.9 10^3/uL (4.3-11.0)
[2023-04-19 19:27] LABS: INR 0.9 (0.8-1.4); PROTHROMBIN TIME PATIENT 12.8 SEC (12.2-14.7)
[2023-04-19 19:38] LABS: ALANINE AMINOTRANSFERASE 28 U/L (0-55); ALBUMIN 4.1 GM/DL (3.2-4.5); ALKALINE PHOSPHATASE 81 U/L (40-136); BILIRUBIN,TOTAL 0.3 MG/DL (0.1-1.0); BUN/CREATININE RATIO 11; CALCIUM 10.2 MG/DL (8.5-10.1); CARBON DIOXIDE 25 MMOL/L (21-32); CHLORIDE 101 MMOL/L (98-107); CREATININE SERUM 0.82 MG/DL (0.60-1.30); GFR ESTIMATED 86; GLUCOSE 176 MG/DL (70-105); MAGNESIUM 1.7 MG/DL (1.6-2.4); POTASSIUM 3.5 MMOL/L (3.6-5.0); SODIUM 140 MMOL/L (135-145); TOTAL PROTEIN 7.3 GM/DL (6.4-8.2)
--- NOTE | 2023-04-19 19:43 | ED Upper Extremity ---
General Chief Complaint: Upper Extremity Stated Complaint: LT ARM PAIN Nursing Triage Note: PT AMB TO [facility] 06 FROM [facility]. PT REPORTS AT APPROX 1650 HE BEGAN EXPERIENCING SEVERE PAIN AND INABILITY TO MOVE LEFT ARM. NO RADIAL PULSE PRESENT DURING TRIAGE, BRACHIAL PULSE FOUND VIA DOPPLER. PT C/O FINGERS TINGLING, LEFT ARM APPEARS COOL AND PALE, PT DENIES PAIN. A&OX4. Source: patient History of Present Illness Date Seen by Provider: Apr 19, 2023 Time Seen by Provider: 19:17 Initial Comments 87-year-old male presenting with complaints of pain and unable to move the left upper extremity starting at 1650. He states that the movement has improved and pain has lessened but he has only tingling in his fingers and hand. He has a cool and pale left upper extremity. He does have a history of atrial fibrillation and is supposed to be taking Eliquis and Plavix however he states that he ran out over a week ago and had not been to [place] to get any refills. He was seen at urgent care and they were unable to find any radial or ulnar pulse. Onset: this afternoon (Since 1650 today) Severity: severe (Initially severe but has lessened since onset) Pain/Injury Location: left shoulder, left arm, left elbow, left forearm, left wrist, left hand Method of Injury: unknown Allergies and Home Medications Allergies Coded Allergies: Bwcglil-Yhv-Ibw Reductase Inhibitor (Verified Allergy, Unknown, 06/15/20) morphine (Verified Allergy, Unknown, 06/15/20) phenytoin (Verified Allergy, Unknown, 06/15/20) Patient Home Medication List Home Medication List Reviewed: Yes Cyclobenzaprine HCl (Cyclobenzaprine HCl) 10 Mg Tablet, 10 MG PO Q8H PRN for SPASMS Prescribed by: ARCHIE HEIN on 06/15/20 1157 Ibuprofen (Ibuprofen) 800 Mg Tablet, 800 MG PO Q8H PRN for PAIN Prescribed by: ARCHIE HEIN on 06/15/20 1157 Oxycodone HCl/Acetaminophen (Percocet 5-325 mg Tablet) 1 Each Tablet, 1 TAB PO Q4H Prescribed by: TERRELL NICOLE on 04/01/20 1516 Review of Systems Constitutional: No chills, No fever EENTM: no symptoms reported Respiratory: no symptoms reported Cardiovascular: no symptoms reported Gastrointestinal: no symptoms reported Musculoskeletal: see HPI Skin: see HPI, change in color Psychiatric/Neurological: See HPI Past Spjbfjq-Roorct-Zlmyot Hx Patient Social History Tobacco Use?: No Use of E-Cig and/or Vaping dev: No Substance use?: No Alcohol Use?: No Immunizations Up To Date Tetanus Booster (TDap): Unknown First/Initial COVID19 Vaccinat: 2020 Second COVID19 Vaccination Rc: 2020 Third COVID19 Vaccination Date: 2021 COVID19 Vaccine Oxyhydrogen Welder: LitRes X3 Seasonal Allergies Seasonal Allergies: No Past Medical History Surgery/Hospitalization HX: GERD; HTN; Hypothyroidism; BPH; Bilateral hip replacement; Right total knee replacement; Thyroid lobectomy Surgeries: Yes (Bilat Total Hip, R TKR, Rt foot Biopsy, Thyroid lobectomy) Appendectomy, Coronary Stent, Orthopedic Respiratory: No Cardiac: Yes Coronary Artery Disease, High Cholesterol, Hypertension Neurological: Yes (Contusion to brain) Genitourinary: No Gastrointestinal: Yes Gastroesophageal Reflux Musculoskeletal: No Endocrine: Yes (Borderline Diabetic) HEENT: No Cancer: No Psychosocial: No Integumentary: Yes (Dermatitis) Recent Skin Changes Blood Disorders: No Physical Exam Vital Signs Vital Signs - First Documented 04/19/23 19:00 Temp 36.4 Pulse 92 Resp 20 B/P (MAP) 175/94 (121) Pulse Ox 98 O2 Delivery Room Air Capillary Refill : Less Than 3 Seconds Height, Weight, BMI Height: '" Weight: lbs. oz. kg; 38.00 BMI Method: General Appearance: WD/WN, no apparent distress, obese Cardiovascular: No normal peripheral pulses; irregularly irregular Respiratory: chest non-tender, lungs clear Gastrointestinal: normal bowel sounds, non tender, soft, no pulsatile mass Shoulder: normal inspection, non-tender, no evidence of injury Elbow/Forearm: no evidence of injury, normal ROM Wrist: Yes no evidence of injury, Yes normal ROM Hand: normal ROM Neurologic/Tendon: normal sensation, normal motor functions Neurologic/Psychiatric: alert, oriented x 3 Skin: warm/dry Progress/Results/Core Measures Results/Orders Lab Results Laboratory Tests Test 04/19/23 19:12 Range/Units White Blood Count 6.9 4.3-11.0 10^3/uL Red Blood Count 4.95 4.30-5.52 10^6/uL Hemoglobin 14.2 13.3-17.7 g/dL Hematocrit 43 40-54 % Mean Corpuscular Volume 87 80-99 fL Mean Corpuscular Hemoglobin 29 25-34 pg Mean Corpuscular Hemoglobin Concent 33 32-36 g/dL Red Cell Distribution Width 14.2 10.0-14.5 % Platelet Count 269 130-400 10^3/uL Mean Platelet Volume 9.7 9.0-12.2 fL Immature Granulocyte % (Auto) 0 % Neutrophils (%) (Auto) 57 42-75 % Lymphocytes (%) (Auto) 30 12-44 % Monocytes (%) (Auto) 10 0-12 % Eosinophils (%) (Auto) 2 0-10 % Basophils (%) (Auto) 1 0-10 % Neutrophils # (Auto) 3.9 1.8-7.8 10^3/uL Lymphocytes # (Auto) 2.1 1.0-4.0 10^3/uL Monocytes # (Auto) 0.7 0.0-1.0 10^3/uL Eosinophils # (Auto) 0.2 0.0-0.3 10^3/uL Basophils # (Auto) 0.1 0.0-0.1 10^3/uL Immature Granulocyte # (Auto) 0.0 0.0-0.1 10^3/uL Prothrombin Time 12.8 12.2-14.7 SEC INR Comment 0.9 0.8-1.4 Activated Partial Thromboplast Time 24 24-35 SEC Sodium Level 140 135-145 MMOL/L Potassium Level 3.5 L 3.6-5.0 MMOL/L Chloride Level 101 98-107 MMOL/L Carbon Dioxide Level 25 21-32 MMOL/L Anion Gap 14 5-14 MMOL/L Blood Urea Nitrogen 9 7-18 MG/DL Creatinine 0.82 0.60-1.30 MG/DL Estimat Glomerular Filtration Rate 86 BUN/Creatinine Ratio 11 Glucose Level 176 H 70-105 MG/DL Calcium Level 10.2 H 8.5-10.1 MG/DL Corrected Calcium 10.1 8.5-10.1 MG/DL Magnesium Level 1.7 1.6-2.4 MG/DL Total Bilirubin 0.3 0.1-1.0 MG/DL Aspartate Amino Transf (AST/SGOT) 32 5-34 U/L Alanine Aminotransferase (ALT/SGPT) 28 0-55 U/L Alkaline Phosphatase 81 40-136 U/L Troponin I < 0.30 <0.30 NG/ML Pro-B-Type Natriuretic Peptide 762.7 H <450.0 PG/ML Total Protein 7.3 6.4-8.2 GM/DL Albumin 4.1 3.2-4.5 GM/DL My Orders Orders - SOCORRO NASCIMENTO MD Cbc With Automated Diff (04/19/23 19:12) Magnesium (04/19/23 19:12) Ekg Tracing (04/19/23 19:12) Comprehensive Metabolic Panel (04/19/23 19:12) Protime With Inr (04/19/23 19:12) Partial Thromboplastin Time (04/19/23:12) O2 (04/19/23:12) Monitor-Rhythm Ecg Trace Only (04/19/23:12) Ed Iv/Invasive Line Start (04/19/23 19:12) Troponin I Fs (04/19/23 19:12) Probnp Fs (04/19/23:12) Heparin Drip 92589 Unit/500ml (Heparin (04/19/23 20:00) Heparin (Bolus Per Protocol) (Heparin (B (04/19/23 20:00) Initiate Heparin Full Protocol (04/19/23 19:55) Ct Angio Ext Upper Left W (04/19/23 20:15) Iohexol Injection (Omnipaque 350 Mg/Ml 1 (04/19/23 20:45) Received Contrast (Hold Metformin- Contr (04/19/23 20:45) Sodium Chloride Flush (Catheter Flush Sy (04/19/23 20:45) Ns (Ivpb) (Sodium Chloride 0.9% Ivpb Bag (04/19/23 20:45) Medications Given in ED Current Medications Medications Dose Ordered Sig/Fabiano Route Start Time Stop Time Status Last Admin Dose Admin Iohexol 100 ml ONCE ONCE IV 04/19/23 20:45 04/19/23 20:46 DC 04/19/23 21:34 100 ML Sodium Chloride 10 ml NEEDED PRN IV 04/19/23 20:45 04/19/23 21:35 10 ML Sodium Chloride 100 ml ONCE ONCE IV 04/19/23 20:45 04/19/23 20:46 DC 04/19/23 21:34 100 ML Vital Signs/I&O 04/19/23 19:00 Temp 36.4 Pulse 92 Resp 20 B/P (MAP) 175/94 (121) Pulse Ox 98 O2 Delivery Room Air Blood Pressure Mean: 121 Admisison Planning May Need Admission (Planning): 19:17 Progress Progress Note #1: Progress Note Potential diagnosis of arterial occlusion, DVT, ischemic limb, thromboembolism from atrial fibrillation. Using a Doppler I was able to hear his blood flow at the brachial level at his elbow on the left upper extremity however I did not hear a definite blood flow at his wrist. I did not find any blood flow with a Doppler listening the ulnar aspect of his wrist. From the radial standpoint he might of had monophasic blood flow but was very weak and hard to tell for sure. His hand was cool to touch and pale. He was not having pain consistent with ischemia. Will obtain lab and peripheral IV access. Send for complete blood count, comprehensive metabolic profile, coagulation factors. Patient requested that we try and contact [facility] as he follows with doctors there. He would like to go to [place] if needed. We will consider starting him on heparin or anticoagulation since he has not been taking his Eliquis or Plavix and is currently in atrial fibrillation. While I could obtain an emergent ultrasound if he was transferred to the emergency department at [place] I still would not have a vascular surgeon available. Based on that the patient requested to try and go to [place] for further evaluation and have a hospital that had vascular surgery available. Progress Note #2: Time: 19:43 Progress Note Since I was unable to palpate pulses in his LUE and was not getting definite or strong doppler blood flow past the level of his brachial artery at the elbow I called [facility] in [place] as the patient reports he follows with Dr. Roca there for Cardiology. I spoke with ANTOLIN Daniels, at the transfer center and she advised that they did not have vascular surgery until April [id number] Call placed to [facility] and ANTOLIN Reza, at the transfer center connected me with the vascular surgeon Dr. Shaheed Jean. He asked about the CTA of the extremity looking for blood flow. I advised him that I did not have that currently but could order one. He stated he could work on getting that done after he gets to [place]. he did recommend starting the heparin for anticoagulation. He also recommended admission to the hospitalist and consult to him. Dr. Huertas is the hospitalist on-call [place] stated that she would call me back as soon as he was available. Complete blood count does not show elevated white blood cell as it is at 6.9. His hemoglobin was normal at 14.2. His coagulation factors for pro time, INR, PTT were all in normal range and then more elevated or showing any thinning of his blood. His comprehensive metabolic profile did not show acute electrolyte abnormality, renal failure, hepatic failure. At [address] Huertas, the on-call hospitalist for [facility]. I reviewed with him the patient presentation and the fact that he has not been on his anticoagulation or medications for the last week. He is currently in atrial fibrillation. Concern for possible arterial and/or vascular occlusion. He is not having ischemic pain to the extremity so he may have at least some collateral blood flow. He was started on heparin to help thin his blood and try and improve blood flow in case it is related to a clot. He did not have an elevated white blood cell count or anemia and his coagulation factors were all in normal range. He accepted the patient for transfer and Vascular Surgeon Dr. Jean had requested to be notified once the patient arrived. Progress Note #3: Time: 22:15 Progress Note At [address] Dr[address] Ernie Carolina, Radiologist for [facility], called to discuss the CT angiography of the LUE. He did not see blood flow past the brachial artery level of the LUE. Since patient did not have palpable pulses to LUE and only for certain heard blood flow at level of brachial artery this is likely a true arterial occlusion of the LUE at the level of brachial artery. Nursing staff notified at [place] of the CTA findings and leasing property manager will cloud images with report to [place] once it is available. Initial ECG Impression Date: Apr 19, 2023 Initial ECG Impression Time: 19:30 Initial ECG Rate: 80 Initial ECG Rhythm: A Fib/Flutter Initial ECG Comparisson: Changed (Sinus rhythm on tracing from 09/15/2020) Comment On my personal interpretation and review of his electrocardiogram he is in atrial fibrillation with a heart rate of [address] elevation. QT interval 337 ms with a QTc interval 373 ms. This is a change from September 15, 2020 when he was in normal sinus rhythm. Diagnostic Imaging Diagonstic Imaging: CT Plain Films/CT/US/NM/MRI: other (Angiography left upper extremity) Comments [facility]. [place], [place] NAME: BELA HAIDER [facility] REC#: [id number] PT STATUS: DEP ER : 1935 PHYSICIAN: SOCORRO NASCIMENTO MD ADMIT DATE: 04/19/23/ER FS Signed Date of Exam:04/19/23 CT ANGIO EXT UPPER LEFT W CLINICAL INDICATION: Patient with cold extremity and pain with weak pulses. EXAM: Axial CT scan of the left upper extremity performed with 100 cc of Omnipaque 350 IV contrast. Sagittal and coronal reformatted images are created. Auto Exposure Controls were utilized during the CT exam to meet ALARA standards for radiation dose reduction. COMPARISON: None. FINDINGS: There is contrast seen within the proximal left subclavian artery and axillary artery which is patent. There is contrast within the proximal and mid left brachial artery region which shows progressively diminished contrast. There is occlusion of the distal left brachial artery. There is also note of increased size of the artery distal to the vascular occlusion concerning for intravascular thrombus. There is no soft tissue air or other abnormality in the region. There is no contrast opacification of vessels seen distal to the distal humerus level. There is no acute fracture or dislocation. There is no soft tissue abnormality otherwise besides the abnormal occluded arteries. IMPRESSION: 1: There is complete occlusion of the distal left brachial artery with thrombus seen within the downstream arteries. There is no contrast within vessels of the left arm distal to the distal humeral region. 2: There is no other significant abnormality seen on this exam. Results of this report discussed with Dr. Reed Nascimento Emergency Room via the telephone on 04/19/2023 at 2215 hours. Dictated by: Dictated on workstation # [id number] Dict: 04/19/232152 Trans: 04/19/232228 [facility] [id number] Interpreted by: ERNIE CAROLINA MD Electronically signed by: ERNIE CAROLINA MD 04/19/232228 Reviewed: Reviewed by Me, Discussed w/Radiologist Critical Care Note Critical Care Total Time (minutes) 45 minutes Progress I spent at least 45 minutes of critical care time with the patient. Time excludes separately billable procedures. Time was spent in obtaining history from patient and electronic medical record, ordering test and reviewing results, ordering interventions and reviewing response, discussion with consultants, documentation in the chart. Patient was at risk of loss of limb due to arterial occlusion, potential stroke from thromboembolism, potential pulmonary embolism or DVT from thromboembolism. 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 Shaheed Jean. He asked about the CTA of the extremity looking for blood flow. I advised him that I did not have that currently but could order one. He stated he could work on getting that done after he gets to [place]. he did recommend starting the heparin for anticoagulation. He also recommended admission to the hospitalist and consult to him. Dr. Huertas is the hospitalist on-call [place] and [place] stated that she would call me back as soon as he was available. At [address] Huertas, the on-call hospitalist for [facility]. I reviewed with him the patient presentation and the fact that he has not been on his anticoagulation or medications for the last week. He is currently in atrial fibrillation. Concern for possible arterial and/or vascular occlusion. He is not having ischemic pain to the extremity so he may have at least some collateral blood flow. He was started on heparin to help thin his blood and try and improve blood flow in case it is related to a clot. He did not have an elevated white blood cell count or anemia and his coagulation factors were all in normal range. He accepted the patient for transfer and Vascular Surgeon Dr. Jean had requested to be notified once the patient arrived. Transfer Facility: [facility] in [place], [place] Method of Transfer: EMS Departure-Patient Inst. Referrals: NO,LOCAL PHYSICIAN (PCP/Family) Primary Care Physician SOCORRO NASCIMENTO MD Apr 19, 2023 19:43
[2023-04-19] MEDS ORDERED: HEParin DRIP 25000 UNIT/500ML 500 ML IV SCH (20:00)
[2023-04-19] MEDS ORDERED: HEParin 1000 UNIT/ML (10ML VIAL) FOR BOLUS IV SCH (20:00)
[2023-04-19] MEDS ORDERED: CATHETER FLUSH 10 ML SYR IV PRN (20:45)
[2023-04-19] MEDS ORDERED: HOLD METFORMIN - RECEIVED CONTRAST 20 ML VIAL IV SCH (20:45)
[2023-04-19] MEDS ORDERED: NS 100 ML (IVPB) BAG IV ONE (20:45)
[2023-04-19] MEDS ORDERED: IOHEXOL 350 MG/ML 100 ML (OMNIPAQUE 350) VIAL IV ONE (20:45)
[2023-04-19 22:04] VITALS: BP 147/91
--- NOTE | 2023-04-19 22:28 | Diagnostic Imaging Report ---
CLINICAL INDICATION: Patient with cold extremity and pain with weak pulses. EXAM: Axial CT scan of the left upper extremity performed with 100 cc of Omnipaque 350 IV contrast. Sagittal and coronal reformatted images are created. Auto Exposure Controls were utilized during the CT exam to meet ALARA standards for radiation dose reduction. COMPARISON: None. FINDINGS: There is contrast seen within the proximal left subclavian artery and axillary artery which is patent. There is contrast within the proximal and mid left brachial artery region which shows progressively diminished contrast. There is occlusion of the distal left brachial artery. There is also note of increased size of the artery distal to the vascular occlusion concerning for intravascular thrombus. There is no soft tissue air or other abnormality in the region. There is no contrast opacification of vessels seen distal to the distal humerus level. There is no acute fracture or dislocation. There is no soft tissue abnormality otherwise besides the abnormal occluded arteries. IMPRESSION: 1: There is complete occlusion of the distal left brachial artery with thrombus seen within the downstream arteries. There is no contrast within vessels of the left arm distal to the distal humeral region. 2: There is no other significant abnormality seen on this exam. Results of this report discussed with Dr. Reed Pino Emergency Room via the telephone on 04/19/2023 at 2215 hours. Dictated by: Dictated on workstation # [id number]
== END 2023-04-19 22:04 | disposition short-term general hospital (02) ==
LOC: EDUNIT# 18:56 → ER FS 18:59
DX: I74.2 Embolism and thrombosis of arteries of the upper extremities (principal); I48.91 Unspecified atrial fibrillation; Z91.199 Patient's noncompliance with other medical treatment and regimen due to unspecified reason
CPT/HCPCS: 36415; 73206; 80053; 83735; 83880; 84484; 85025; 85610; 85730; 93005; 93041